=== PATIENT | female | born 1990 | race Caucasian/White ===

== ENCOUNTER 2022-01-22 10:29 | Emergency (ER) | payer OTHER, SELFPAY ==
[2022-01-22 11:51] VITALS: BP 145/96; PULSE 92; RESP 18; TEMP 36.4; O2SAT 100
--- NOTE | 2022-01-22 12:51 | ED.URI ---
HPI - URI/Sore Throat General Chief Complaint: Upper Respiratory Infection Stated Complaint: sorethroat,cough,nasal congestion Time Seen by Provider: 01/22/22 12:51 Source: patient, RN notes reviewed and old records reviewed Mode of arrival: ambulatory Limitations: no limitations History of Present Illness HPI Narrative: 31 year old female presents to [facility] care with complaints of sinus congestion and drainage some coughing and sore throat for the past 3 days. Patient reports that her throat is painful with pain 8/10 and is sharp and painful to swallow. she reports that she noted some hoarseness which started yesterday. Patent reports that she has had COVID vaccinations and flu shot, she had coVID in August of 2020. Patient states that she took a home COVID test this morning which was negative. Patient states that she has been taking Mucinex Sinus Max for her symptoms. MD elicited complaint: cough, sore throat, rhinorrhea and nasal congestion Pertinent past history: seasonal allergies Onset (ago): day(s) (3) Related Data Home Medications Medication Instructions Recorded Confirmed escitalopram oxalate 20 mg PO DAILY 01/22/22 01/22/22 norethindrone (contraceptive) 0.35 mg PO DAILY 01/22/22 01/22/22 Allergies Allergy/AdvReac Type Severity Reaction Status Date / Time No Known Allergies Allergy Verified 01/22/22 12:52 Review of Systems Review of Systems: CONSTITUTIONAL: Denies any fever, chills, or sweats. EYES: Denies visual changes, redness, or discharge. ENT Positive for rhinorrhea, congestion, sore throat, no otalgia. CARDIOVASCULAR: Denies chest pain, palpitations, or edema. RESPIRATORY:Positive for occasional cough no dyspnea., some hoarseness GASTROINTESTINAL: Denies abdominal pain, nausea, vomiting, or diarrhea. GENITOURINARY: Denies dysuria or hematuria. SKIN: Denies rash or itching. MUSCULOSKELETAL: Denies back pain, joint pain, or myalgia. NEUROLOGIC: Denies headache, numbness, or weakness. PSYCHIATRIC:Positive history of anxiety or depression. All systems reviewed & are unremarkable except as noted in HPI and below PMFSH Past Medical History Medical History (Updated 01/22/22 @ 23:37 by Herlinda Alarcon NP) Asthma as child Depression Seasonal allergies Surgical History Surgical History (Updated 01/22/22 @ 23:32 by Herlinda Alarcon NP) History of rhinoplasty Hx of cholecystectomy Previous section X2 Social History Social History (Updated 01/22/22 @ 23:38 by Herlinda Alarcon NP) Smoking status: Never smoker Alcohol intake: current Alcohol use details: social rare Substance use: never Living arrangements: with family Gender identity (if verbalized by the patient): Female Comments At time of signature, agree with nursing past medical, surgical, social and family history. There is no relevant family history pertinent to the presenting complaint Exam Narrative: GENERAL: Ill-appearing, well-nourished, and in no acute distress. HEAD: Normocephalic, atraumatic. EYES: PERRLA and EOMI. ENT: Nares red and swollen with clear rhinorrhea no epistaxis. Mucous membranes moist.TM's normal with good light reflex, throat red with no lesions or exudtes, tonsils red and swollen,post nasal drainage noted NECK: Supple. no lymphadenopathy CHEST: Clear to auscultation. No respiratory distress.occasional cough, SAO2 100% on room air, no tachypnea HEART: Regular rate and rhythm. No murmur heard. Normal peripheral pulses. ABDOMEN: Soft, nontender, nondistended, normal active bowel sounds. EXTREMITIES: Normal range of motion. No edema. SKIN: Warm, dry, no rash. NEURO: No focal deficits. Alert and oriented x3. Course Course Level of Care: Express Care Visit Vital Signs Vital signs: Vital Signs Temperature 36.4 C L 01/22/22 11:51 Pulse Rate 92 01/22/22 11:51 Respiratory Rate 18 01/22/22 11:51 Blood Pressure 145/96 H 01/22/22 11:51 Pulse Oximetry 100 01/22/22 11:51
== END 2022-01-22 13:10 | disposition home or self-care (01) ==
PROVIDERS: Emergency Provider Registered Nurse
DX: J06.9 Acute upper respiratory infection, unspecified (principal); J02.9 Acute pharyngitis, unspecified; R05.9 Cough, unspecified; F32.9 Major depressive disorder, single episode, unspecified
CPT/HCPCS: 87081; 87880; 99203; G0463

== ENCOUNTER 2022-02-06 12:39 | Emergency (ER) | payer OTHER, SELFPAY ==
[2022-02-06 12:50] VITALS: BP 145/91; PULSE 84; RESP 20; TEMP 36.1; O2SAT 99
--- NOTE | 2022-02-06 12:56 | ED.EYEPROB ---
HPI - Eye Problem General Chief complaint: Eye Problems Stated complaint: rt eye irritation Time Seen by Provider: 02/06/22 12:56 Source: patient Mode of arrival: ambulatory Limitations: no limitations History of Present Illness HPI Narrative: 31-year-old female presented for complaints of right eye irritation, onset this morning. She states she woke with the eye crusted shut, endorses drainage throughout the day. 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 Endorses intermittent blurry vision and gritty sensation. Denies pain. Pt does not wear contacts. MD chief complaint: eye pain Related Data Home Medications Medication Instructions Recorded Confirmed escitalopram oxalate 20 mg PO DAILY 01/22/22 02/06/22 norethindrone (contraceptive) 0.35 mg PO DAILY 01/22/22 02/06/22 Allergies Allergy/AdvReac Type Severity Reaction Status Date / Time No Known Allergies Allergy Verified 01/22/22 12:52 Review of Systems Review of Systems: CONSTITUTIONAL: Denies body aches, fever, chills EYES:Endorses redness and drainage to right eye; denies FB sensation, photophobia, visual changes ENT: Denies rhinorrhea, congestion, sore throat, or otalgia. CARDIOVASCULAR: Denies chest pain, palpitations RESPIRATORY: Denies cough or dyspnea. GASTROINTESTINAL: Denies abdominal pain, nausea, vomiting, or diarrhea. SKIN: Denies rash, itching, or wounds. MUSCULOSKELETAL: Denies back pain, joint pain, or myalgia. NEUROLOGIC: Denies headache, numbness, tingling, or weakness. PSYCH: Denies depression or anxiety. All systems reviewed & are unremarkable except as noted in HPI and below PMFSH Past Medical History Medical History (Updated 02/06/22 @ 13:02 by Esperanza Hanley APRN) Asthma as child Depression Seasonal allergies Surgical History Surgical History History of rhinoplasty Hx of cholecystectomy Previous section X2 Social History Social History Smoking status: Never smoker Alcohol intake: current Alcohol use details: social rare Substance use: never Gender identity (if verbalized by the patient): Female Comments At time of signature, I have reviewed and agree with nursing past medical, surgical, social and family history unless otherwise noted. Please see nursing chart for further information. There is no relevant family history pertinent to the presenting complaint Exam Narrative: GENERAL: Well-appearing, no acute distress. HEAD: Normocephalic, atraumatic. EYES: right conjunctival injection, redness and drainage; no eye lid swelling. EOMI. Lid eversion showed no FB. ENT: Mucous membranes pink and moist. No rhinorrhea. TMs normal bilaterally. Throat normal. Uvula midline. NECK: Normal AROM. Supple. No lymphadenopathy. CHEST: No respiratory distress. Clear to auscultation. HEART: Regular rate and rhythm. No murmur appreciated. Normal peripheral pulses. ABDOMEN: Soft, nontender, nondistended MUSCULOSKELETAL: No bony tenderness. EXTREMITIES: Normal range of motion. SKIN: Warm, dry, no rash. Normal skin turgor. NEURO: No focal deficits. Alert and oriented x3. Steady gait PSYCH: Normal affect. Course Course Emergency Course: Patient is aware of diagnosis, understands and agrees to treatment plan. Anticipatory guidance given. Patient agrees to follow-up as directed and is aware of reasons to seek care at the emergency department. Portions of this record may have been created with voice recognition software Level of Care: Express Care Visit Vital Signs Vital signs: Vital Signs Temperature 96.9 F L 02/06/22 12:50 Pulse Rate 84 02/06/22 12:50 Respiratory Rate 20 02/06/22 12:50 Blood Pressure 145/91 H 02/06/22 12:50 Pulse Oximetry 99 02/06/22 12:50 Temperature 96.9 F L 02/06/22 12:50 Pulse Rate 84 02/06/22 12:50 Respiratory Rate 20
== END 2022-02-06 13:23 | disposition home or self-care (01) ==
PROVIDERS: Emergency Provider Nurse Practitioner Family
DX: H10.9 Unspecified conjunctivitis (principal)
CPT/HCPCS: 99213; G0463

== ENCOUNTER 2023-01-31 16:55 | Emergency (ER) | payer OTHER, SELFPAY ==
--- NOTE | ~2023-01-31 | XR_ITS ---
XR ankle LT min 3V DATE: 01/31/2023 17:23 INDICATION: Twisted ankle today. Lateral pain. TECHNIQUE: 3 views COMPARISON: None FINDINGS: There is distal Achilles tendon, mild calcification, minimal posterior calcaneal enthesopat hy, mild plantar calcaneal enthesopathy. No fracture or dislocation of the ankle or disruption of the ankle mortise is detected. No periosteal reaction or bone destruction. IMPRESSION: Minimal posterior and mild plantar calcaneal enthesopathy Minimal distal Achilles tendon calcification Reviewed, dictated and finalized at location A.
[2023-01-31 17:08] VITALS: BP 150/97; PULSE 82; RESP 16; TEMP 36.3; O2SAT 100
--- NOTE | 2023-01-31 17:17 | ED.LOWEXIN ---
HPI - Extremity Injury (Lower) General Chief Complaint: Extremity Injury, Lower Stated Complaint: lt ankle injury Time Seen by Provider: 01/31/23 17:17 Source: patient Mode of arrival: ambulatory Limitations: no limitations History of Present Illness HPI Narrative: Patient is a 32-year-old female that presents with left ankle pain after rolling it off a curb. Patient states it is just the outer part of her ankle that hurts but is still able ambulate with a limp. Denies any numbness or tingling in the foot. Denies hitting head with falling Related Data Home Medications Medication Instructions Recorded Confirmed escitalopram oxalate 20 mg tablet 20 mg PO DAILY 01/22/22 01/31/23 norethindrone (contraceptive) 0.35 0.35 mg PO DAILY 01/22/22 01/31/23 mg tablet bupropion HCl 300 mg 24 hr tablet, mg PO 01/31/23 01/31/23 extended release lisinopril 30 mg tablet 30 mg PO DAILY 01/31/23 01/31/23 montelukast 10 mg tablet 10 mg PO DAILY 01/31/23 01/31/23 propranolol 40 mg tablet 40 mg PO DAILY 01/31/23 01/31/23 Allergies Allergy/AdvReac Type Severity Reaction Status Date / Time No Known Allergies Allergy Verified 01/31/23 17:12 Review of Systems Review of Systems: All systems reviewed & are unremarkable except as noted in HPI and below Constitutional: Constitutional: Denies body ache(s), Denies fever(s), Denies headache(s), Denies malaise and Denies weakness Eyes: Eyes: Denies loss of vision ENT: Denies otalgia, Denies headache(s), Denies nasal discharge, Denies sinus pain and Denies sore throat Cardiovascular: Cardiovascular: Denies chest pain, Denies irregular heart rhythm and Denies dyspnea Respiratory: Respiratory: Denies dyspnea Gastrointestinal: Gastrointestinal: Denies abdominal pain, Denies melena, Denies hematochezia, Denies diarrhea, Denies nausea and Denies vomiting Musculoskeletal: Musculoskeletal: Reports abnormal gait (limp), Denies back pain, Denies myalgias, Reports arthralgias (left ankle) and Reports joint swelling (left ankle) Integumentary/Breasts: Skin/Breast: Denies pruritus and Denies rash Neurologic: Denies headache(s), Denies loss of vision and Denies weakness Psychiatric: Psychiatric: Reports no additional psychiatric complaints PMFSH Past Medical History Medical History (Updated 01/31/23 @ 17:58 by Maida Devine APRN) Asthma as child Depression Seasonal allergies Surgical History Surgical History History of rhinoplasty Hx of cholecystectomy Previous section X2 Social History Social History Smoking status: Never smoker Alcohol intake: current Alcohol use details: social rare Substance use: never Living arrangements: with family Gender identity (if verbalized by the patient): Female Comments At time of signature, agree with nursing past medical, surgical, social and family history. There is no relevant family history pertinent to the presenting complaint. Exam Const: General: cooperative, healthy appearing, comfortable, no acute distress and well nourished Nutritional Appearance: well nourished Orientation/consciousness: patient oriented x3 Limitations: no limitations HENMT: Head: normal to inspection, normocephalic and atraumatic Ears: external ears normal Face/Nose/Sinus: Normal external nose present, normal facial exam and face symmetric Face and sinus: normal facial exam and face symmetric Mouth: Yes lip normal Eyes: General: appearance normal, both eyes and all related structures Alignment and Position: alignment normal and position normal Periorbital: periorbital findings normal Eyelids: eyelids normal Pupils: Equal, round and reactive pupils present EOM: EOMs intact bilaterally Neck: Neck: normal visual inspection and full ROM Chest: Chest palpation & inspection: normal inspection of the chest Resp: Effort & In
== END 2023-01-31 18:15 | disposition home or self-care (01) ==
PROVIDERS: Emergency Provider Nurse Practitioner Family
DX: S93.402A Sprain of unspecified ligament of left ankle, initial encounter (principal); S96.912A Strain of unspecified muscle and tendon at ankle and foot level, left foot, initial encounter; X50.9XXA Other and unspecified overexertion or strenuous movements or postures, initial encounter
CPT/HCPCS: 73610; 99213; G0463

== ENCOUNTER 2024-04-22 08:04 | Emergency (ER) | payer OTHER, SELFPAY ==
--- NOTE | ~2024-04-22 | XR_ITS ---
XR finger 3rd LT min 2V Ordering provider: Catarina Perdomo III, DO History: . smashed in car door TODAY, MID 3RD DIGIT PAIN . Comparison: None. FINDINGS: BONES: No acute fracture or dislocation. JOINT SPACES: Normal. SOFT TISSUES: Normal. IMPRESSION: No acute osseous abnormality. Reviewed, dictated and finalized at location A.
[2024-04-22 08:10] VITALS: BP 174/110; PULSE 82; RESP 18; TEMP 36.4; O2SAT 99
--- NOTE | 2024-04-22 08:36 | ED.UPPEXIN ---
HPI - Extremity Injury (Upper) General Chief Complaint: Extremity Injury, Upper Stated Complaint: L 3RD DIGIT INJURY Time Seen by Provider: 04/22/24 08:31 History of Present Illness HPI narrative: Pt smashed finger in car door this morning. Pt denies other injury. Related Data Home Medications Medication Instructions Recorded Confirmed escitalopram oxalate 20 mg tablet 20 mg PO DAILY 01/22/22 01/31/23 norethindrone (contraceptive) 0.35 0.35 mg PO DAILY 01/22/22 01/31/23 mg tablet bupropion HCl 300 mg 24 hr tablet, mg PO 01/31/23 01/31/23 extended release lisinopril 30 mg tablet 30 mg PO DAILY 01/31/23 01/31/23 montelukast 10 mg tablet 10 mg PO DAILY 01/31/23 01/31/23 propranolol 40 mg tablet 40 mg PO DAILY 01/31/23 01/31/23 Allergies Allergy/AdvReac Type Severity Reaction Status Date / Time No Known Allergies Allergy Verified 04/22/24 08:13 Review of Systems Review of Systems: All systems reviewed & are unremarkable except as noted in HPI and below PMFSH Past Medical History Medical History (Updated 04/22/24 @ 09:09 by Catarina Perdomo III, DO) Asthma as child Depression Seasonal allergies Surgical History Surgical History History of rhinoplasty Hx of cholecystectomy Previous section X2 Social History Social History Smoking status: Never smoker Alcohol intake: current Alcohol use details: social rare Substance use: never Living arrangements: with family Gender identity (if verbalized by the patient): Female Exam Const: General: healthy appearing and no acute distress Nutritional Appearance: well nourished Orientation/consciousness: patient oriented x3 Resp: Effort & Inspection: normal respiratory effort Cardio: Rate: regular rate Rhythm: regular rhythm GI: GI Palp: Yes Soft to palpation Skin: General skin exam: normal color Wounds: no wounds Neuro: General: no focal motor deficits Extrem: Other: tender with swelling over middle phalanx left 3rd finger. no deformity or rotation noted. Psych: Mental Status: mental status grossly normal Affect: normal affect Attitude: cooperative Course Vital Signs Vital signs: Vital Signs Temperature 97.6 F 04/22/24 08:10 Pulse Rate 82 04/22/24 08:10 Respiratory Rate 18 04/22/24 08:10 Blood Pressure 174/110 H 04/22/24 08:10 Pulse Oximetry 99 04/22/24 08:10 Oxygen Delivery Room Air 04/22/24 08:10 Temperature 97.6 F 04/22/24 08:10 Pulse Rate 82 04/22/24 08:10 Respiratory Rate 18 04/22/24 08:10 Blood Pressure 174/110 H 04/22/24 08:10 Pulse Oximetry 99 04/22/24 08:10 Oxygen Delivery Room Air 04/22/24 08:10 MDM - Extremity Injury (Upper) MDM Narrative Medical decision making narrative: smashed finger in car door. contusion vs fx. will get x ray. no fx on x ray home on nsaids. Discharge Plan Discharge Clinical Impression: Contusion Patient Disposition: Home, Self-Care Condition: Stable Instructions: Antibiotic Form, Contusion in Adults (ED) Prescriptions: No Action escitalopram oxalate 20 mg tablet 20 mg PO DAILY norethindrone (contraceptive) 0.35 mg tablet 0.35 mg PO DAILY propranolol 40 mg tablet 40 mg PO DAILY lisinopril 30 mg tablet 30 mg PO DAILY montelukast 10 mg tablet 10 mg PO DAILY bupropion HCl 300 mg tablet extended release 24 hr PO Follow-up/Referrals: [facility] - [facility], [Primary Care Provider] -
== END 2024-04-22 09:20 | disposition home or self-care (01) ==
PROVIDERS: Emergency Provider Emergency Medicine
DX: S60.032A Contusion of left middle finger without damage to nail, initial encounter (principal); F32.A Depression, unspecified; W23.0XXA Caught, crushed, jammed, or pinched between moving objects, initial encounter
CPT/HCPCS: 73140; 99283

== ENCOUNTER 2025-08-01 18:17 | Emergency (ER) | payer OTHER, SELFPAY ==
--- OUTSIDE RECORDS SUMMARY | 2025-07-31 23:11 | XMS_ITS | Encounter Summary ---
Author Organization [facility] Address [address] [place] [address] Care Team Providers Care German Tutor Name Role Phone None, Provider MD Primary Care Provider Unavaila ble Reason for Referral * Imaging (Emergency) - New Request Specialty Diagnoses / Procedures Referred By Ree hart Referred To Contact RADIOLOGY Procedures CTA CHEST+ABD+PEL Ness Contreras PA [address] [place] [address] Phone: tel: fax: Referral ID Status Reason Start Date Expiration Date V isits Requested Visits Authorized [id number] New Request 07/31/2025 07/31/2026 1 1 Reason for Visit * Reason Comments Abdominal Pain Encounter Details Date Type Department Care Team (Late st Contact Info) Description 07/31/2025 11:11 PM CDT - 08/01/2025 2:15 AM CDT Emergency [facility] [place] [address] Alvin Barreto MD,PHD [address] [place] [address] Abdominal Pain Discharge Disposition: Home or Self Care (Routine Discharge) Social History Tobacco Use Types Packs/Day Years Used Date Smoking Tobacco: Never Smokeless Tobacco: Never Tobacco Cessation:Counseling Given: Not Answered Comments Unknown Sex and Gender Information Value Date Recorded Sex Assigned at Not on file Legal Sex Female 10:20 PM CDT Gender Identity Not on file Sexual Orientation Not on file documented as of this encounter Last Filed Vital Signs Vital Sign Reading Time Taken Comments Blood Pressure 176/115 08/01/2025 12:15 AM CDT Pulse 88 08/01/2025 12:15 AM CDT Temperature 36.7 C (98 F) 07/31/2025 10:25 PM CDT Respiratory Rate 20 08/01/2025 12:1 5 AM CDT Oxygen Saturation 97% 07/31/2025 10: 25 PM CDT Inhaled Oxygen Concentration - - Weight 104.4 kg (230 lb 2.6 oz) 025 10:25 PM CDT Height 167.6 cm (5' 6) 07/31/2025 10:2 5 PM CDT Body Mass Index 37.15 07/31/2025 10:25 PM CDT documented in this encounter Functional Status * Calculated C-SSRS Risk Score (Lifetime/Recent) Answer Date of Assessment Author Status No Risk Indicated 07/31/2025 10:24 PM CDT Omar Apodaca RN Active * [place] Suicide Severity Rating Scale (Screener/Recent Self-Report) Question Answer Date of Assessment Author Status 1. Wish to be (Past 1 Month) No 07/31/2025 10:24 PM CDT Radha Apodaca RN A ctive 2. Non-Specific Active Suicidal Thoughts (Past 1 Month) No 07/31/2025 10:24 PM CDT Radha Apodaca RN A ctive 6. Suicidal Behavior (Lifetime) No 07/31/2025 10:24 PM CDT Radha Apodaca RN A ctive documented as of this encounter Discharge Instructions * Attachments The following attachments cannot be sent through Care Everywhere. * Anal Fissure Discharge Instructions (Kyrgyz) documented in this encounter Medications at Time of Discharge psyllium (KONSYL) 100 % Pack Take 1 packet by mouth daily. May substitute with any fiber supplement 30 packet 08/01/2025 documented as of this encounter ED Notes * Valerie Dickens RN - 08/01/2025 2:15 AM CDT Provider discussed today's findings with the patient/family. The patient has been given informationregarding their treatment, follow up and concerning symptoms for which they should seek urgent or emergent attention. I have expressed the the importance of seeking attention should there be any new,or worsening symptoms or persistence of their condition. Patient verbalized understanding of the discharge instructions. * Alvin Barreto MD,PHD - 08/01/2025 1:56 AM CDT EMERGENCY DEPARTMENT ENCOUNTER Chief Complaint Chief Complaint Patient presents with Abdominal Pain History of Present Illness 35-year-old female presenting the emergency department with bright red blood per rectum. She notices bright red blood separate from stool following bowel movements. She intermittently has crampy abdominal pain but has no abdominal pain currently. Patient has no abdominal surgical history. Her only daily medications are Wellbutrin and escitalopram. Physical Exam Filed Vitals: 07/31/25 2225 08/01/25 0015 BP: (!) 222/134 (!) 176/115 Pulse: 89 88 Resp: 22 20 Temp: 98 ??F (36.7 ??C) TempSrc: Temporal SpO2: 97% Weight: 104.4 kg (230 lb 2.6 oz) Height: 1.676 m (5' 6) CONSTITUTIONAL: Patient is awake, alert, in no acute distress, conversant CARDIOVASCULAR: Regular rate and rhythm RESPIRATORY: No respiratory distress or tachypnea, no wheezing or crackles ABDOMEN: Soft, nontender, nondistended RECTAL: Performed with female nurse change analyst Valerie Monique present and assisting, anal fissure at the 12o'clock position that is slight venous oozing NEUROLOGIC: GCS 15, CN2-12 grossly intact, moves all extremities EXTREMITIES: Warm, no edema Diagnostic Studies / Procedures ELECTROCARDIOGRAMS: EKG, TIME 2341 Rate 84, normal sinus rhythm, no ectopy, normal intervals, normal axis, no ST elevations Interpretation by me: no acute ischemic changes Rhythm strip interpreted by me: Rate 84, normal sinus rhythm, no ectopy LABORATORY STUDIES: Results for orders placed or performed during the hospital encounter of 07/31/25 CBC W/DIFF AUTOMATED Result Value Ref Range WBC 11.89 (H) 4.5 - 11.0 x10'3/uL RBC 4.42 4.20 - 5.40 x10'6/uL HGB 11.8 (L) 12.0 - 16.0 G/DL HCT 36.8 (L) 38.0 - 48.0 % MCV 83.3 81.0 - 99.0 FL MCH 26.7 (L) 27.0 - 31.0 PG MCHC 32.1 32.0 - 36.0 G/DL RDW 14.4 11.5 - 14.5 % PLT 387 130 - 400 x10'3/uL MPV 9.7 9.3 - 12.2 FL DIFFERENTIAL TYPE AUTOMATED DIFFERENTIAL NEUTROPHILS % 60.6 % LYMPHOCYTES % 25.7 % MONOCYTES % 8.2 % EOSINOPHILS 4.4 % BASOPHILS 0.8 % IMMATURE GRANS % 0.3 % ABS. NEUTROPHILS 7.20 1.80 - 7.70 x10'3/uL ABS. LYMPHOCYTES 3.06 1.00 - 4.80 x10'3/uL ABS. MONOCYTES 0.97 (H) 0.24 - 0.86 x10'3/uL ABS. EOSINOPHILS 0.52 (H) 0.04 - 0.36 x10'3/uL ABS. BASOPHILS 0.10 (H) 0.01 - 0.08 x10'3/uL ABS. IMMATURE GRANULOCYTES 0.04 0.00 - 0.49 x10'3/uL COMPREHENSIVE METABOLIC PANEL Result Value Ref Range GLUCOSE 104 (H) 70 - 99 MG/DL BUN 11 7 - 18 MG/DL CREATININE S/P/B 0.78 0.55 - 1.02 MG/DL SODIUM S/P/B 141 136 - 145 MMOL/L POTASSIUM S/P/B 3.6 3.5 - 5.1 MMOL/L CHLORIDE S/P/B 108 97 - 115 MMOL/L CO2 26.0 21 - 32 MMOL/L CALCIUM S/P/B 8.8 8.5 - 10.1 MG/DL BILIRUBIN TOTAL S/P/B 0.2 0.2 - 1.2 MG/DL TOTAL PROTEIN S/P/B 7.5 6.4 - 8.2 G/DL ALBUMIN S/P/B 3.7 3.4 - 5.0 G/DL AST 9 (L) 15 - 37 U/L ALT 19 14 - 55 U/L ALKALINE PHOSPHATASE S/P/B 93 50 - 136 U/L ANION GAP 7.0 2 - 10 MMOL/L BUN CREATININE RATIO 14.1 6 - 26 A/G RATIO 1.0 1.0 - 2.0 RATIO GFR ESTIMATE >90 >90 ML/MIN/1.73 M2 Qualitative HCG Result Value Ref Range PREG SCREEN-SERUM NEGATIVE TROPONIN, QUANT Result Value Ref Range TROPONIN I HIGH SENSITIVITY 10 <54 ng/L MAGNESIUM Result Value Ref Range MAGNESIUM 2.0 1.8 - 2.4 MG/DL IMAGING STUDIES CTA CHEST+ABD+PEL Final Result by User, [id number] (08/01 133) [facility] [address] [place], [place] [address] EXAM: CTA CHEST+ABD+PEL INDICATION: Abdominal pain, blood in stool COMPARISON: None TECHNIQUE: CTA images of the chest, abdomen, and pelvis were obtained prior to and following the administration of IV contrast. Delayed images were also obtained. MIP reconstructions were synthesized. 3D reconstruction of vasculature was synthesized. Radiation dose reduction technique utilized. FINDINGS: VASCULATURE: Aortic root, ascending aorta, aortic arch, and descending thoracic aorta are unremarkable. No aneurysmal dilatation or dissection. Great vessels of the aortic arch exhibit typical anatomic configuration. Nonaneurysmal abdominal aorta does not demonstrate significant flow limiting stenosis. Celiac axis, SMA, and bilateral renal arteries are normal. Right common, internal, and external iliac arteries are patent without stenosis. Left common, internal, and external iliac arteries are patent without stenosis. No evidence of hemorrhage, dissection, or pseudoaneurysm formation. Though this study is not optimized for evaluation for pulmonary emboli, no filling defects in the main or segmental pulmonary arteries to suggest pulmonary embolism. CHEST: Cardiac chambers within normal size limits. No significant pericardial effusion or significant coronary atherosclerosis. No mediastinal, hilar, or axillary lymphadenopathy. No suspicious thyroid nodule the field of view. Esophagus within normal limits. Trachea and central airways are patent. No pneumothorax. No pleural effusion. No focal airspace consolidation. ABDOMEN/PELVIS: Hepatomegaly, measuring 19.6 cm. No suspicious hepatic lesion. Cholecystectomy. Main portal vein, splenic vein, and SMV enhance. No retroperitoneal lymphadenopathy. No evidence of bowel obstruction or acute inflammation. Redundant course of the colon. No colonic diverticulosis. Moderate colonic stool burden. Normal appearing appendix. Small bowel is unremarkable. Stomach and duodenum within normal limits. No evidence of GI hemorrhage. Unremarkable spleen. Pancreas and adrenal glands within normal limits. Kidneys enhance symmetrically. Benign-appearing renal cystic foci for which no further follow-up is recommended. No hydronephrosis or hydroureter. Urinary bladder appears distended; wall within normal limits. Uterus and adnexa within normal limits, with physiologic follicles present in the ovaries. No pelvic lymphadenopathy or significant free fluid. Incidental note of benign pelvic phleboliths. MSK / BODY WALL: Mild chronic degenerative changes of the hips and sacroiliac joints. Mild chronic multilevel degenerative changes of the spine. Visualized body wall exhibits no acute abnormality. IMPRESSION: 1. No acute abnormality identified in the chest, abdomen, or pelvis. No evidence of GI hemorrhage, as clinically queried. 2. Hepatomegaly. 3. Urinary bladder appears distended; wall within normal limits. Referred By: Interpreted By: Mahin Ruiz MD, 08/01/2025 1:32 AM ED Course / Medical Decision Making Patient presenting with a chief complaint of rectal bleeding I reviewed the patient's labs, which are significant for borderline leukocytosis and mild normocytic anemia on CBC. Her CMP is notable for borderline hyperglycemia. I reviewed the radiologist's interpretation of the patient's radiologic diagnostics. No acute abnormality within the chest, abdomen, or pelvis is demonstrated. I interpreted the patient's pulse oximeter at rest, which is 97% on room air, which is normal and determined that this patient is not hypoxic Medication management: Ondansetron was administered for symptomatic relief An anal fissure as the source of the patient's bleeding is clinically diagnosed with an examination. Treatment of anal fissure was discussed with the patient. Psyllium is prescribed Patient's blood pressure was markedly elevated during her emergency department course. I have explained that this may need treatment if it remains elevated at rest and have recommended primary care follow-up in this regard. The following social determinates of health were considered when determining a disposition: The patient does not have primary care physician. The patient is thus referred to a primary care physician for further evaluation and treatment of acute complaints and for health maintenance and management of long-term medical problems Clinical Impression Anal fissure (Primary) Elevated blood pressure reading Disposition: Discharge home Patient provided with printed and verbal discharge care instructions and was instructed to return to the emergency department immediately with worsening symptoms or new worrisome symptoms. Diagnoses & treatment discussed with patient Patient expressed understanding and agreed. Outpatient referral to primary care physician. Patient provided with phone number to call for an appointment. Patient instructed to call on the next business day during business hours. Patient informed that they require re- evaluation within 1 week. 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 Pt states it is bright red blood in large amounts. Pt rates her pain 5/10. 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 documented in this encounter Plan of Treatment Not on file documented as of this encounter Procedures Procedure Name Priority Date/Time Associated Diagnosis Comments CTA CHEST+ABD+PEL STAT 08/01/2025 12: 42 AM CDT ECG 12-LEAD Routine 07/31/2025 11:41 PM CDT COMPREHENSIVE METABOLIC PANEL STAT 07/31/2025 11:26 PM CDT CHORIONIC GONADOTROPIN HCG QL STAT 07/31/2025 11:26 PM CDT CBC W/DIFF AUTOMATED STAT 07/31/2025 11:26 PM CDT TROPONIN, QUANT STAT 07/31/2025 11:26 PM CDT MAGNESIUM STAT 07/31/2025 11:26 PM CDT documented in this encounter Results * CTA CHEST+ABD+PEL (08/01/2025 12:42 AM CDT) Anatomical Region Laterality Modality Chest, Abdomen, Pelvis Computed Tomography 08/01/2025 1:32 AM CDT Impressions 08/01/2025 1:32 AM CDT IMPRESSION: 1. No acute abnormality identified in the chest, abdomen, or pelvis. No evidence of GI hemorrhage, as clinically queried. 2. Hepatomegaly. 3. Urinary bladder appears distended; wall within normal limits. Referred By: Interpreted By: Mahin Ruiz MD, 08/01/2025 1:32 AM Narrative 08/01/2025 1:32 AM CDT [address] [address] EXAM: CTA CHEST+ABD+PEL INDICATION: Abdominal pain, blood in stool COMPARISON: None TECHNIQUE: CTA images of the chest, abdomen, and pelvis were obtained prior to and following the administration of IV contrast. Delayed images were also obtained. MIP reconstructions were synthesized. 3D reconstruction of vasculature was synthesized. Radiation dose reduction technique utilized. FINDINGS: VASCULATURE: Aortic root, ascending aorta, aortic arch, and descending thoracic aorta are unremarkable. No aneurysmal dilatation or dissection. Great vessels of the aortic arch exhibit typical anatomic configuration. Nonaneurysmal abdominal aorta does not demonstrate significant flow limiting stenosis. Celiac axis, SMA, and bilateral renal arteries are normal. Right common, internal, and external iliac arteries are patent without stenosis. Left common, internal, and external iliac arteries are patent without stenosis. No evidence of hemorrhage, dissection, or pseudoaneurysm formation. Though this study is not optimized for evaluation for pulmonary emboli, no filling defects in the main or segmental pulmonary arteries to suggest pulmonary embolism. CHEST: Cardiac chambers within normal size limits. No significant pericardial effusion or significant coronary atherosclerosis. No mediastinal, hilar, or axillary lymphadenopathy. No suspicious thyroid nodule the field of view. Esophagus within normal limits. Trachea and central airways are patent. No pneumothorax. No pleural effusion. No focal airspace consolidation. ABDOMEN/PELVIS: Hepatomegaly, measuring 19.6 cm. No suspicious hepatic lesion. Cholecystectomy. Main portal vein, splenic vein, and SMV enhance. No retroperitoneal lymphadenopathy. No evidence of bowel obstruction or acute inflammation. Redundant course of the colon. No colonic diverticulosis. Moderate colonic stool burden. Normal appearing appendix. Small bowel is unremarkable. Stomach and duodenum within normal limits. No evidence of GI hemorrhage. Unremarkable spleen. Pancreas and adrenal glands within normal limits. Kidneys enhance symmetrically. Benign-appearing renal cystic foci for which no further follow-up is recommended. No hydronephrosis or hydroureter. Urinary bladder appears distended; wall within normal limits. Uterus and adnexa within normal limits, with physiologic follicles present in the ovaries. No pelvic lymphadenopathy or significant free fluid. Incidental note of benign pelvic phleboliths. MSK / BODY WALL: Mild chronic degenerative changes of the hips and sacroiliac joints. Mild chronic multilevel degenerative changes of the spine. Visualized body wall exhibits no acute abnormality. Procedure Note Mahin Ruiz MD - 08/01/[address] [address] EXAM: CTA CHEST+ABD+PEL INDICATION: Abdominal pain, blood in stool COMPARISON: None TECHNIQUE: CTA images of the chest, abdomen, and pelvis were obtainedprior to and following the administration of IV contrast. Delayed imageswere also obtained. MIP reconstructions were synthesized. 3Dreconstruction of vasculature was synthesized. Radiation dose reductiontechnique utilized. FINDINGS: VASCULATURE: Aortic root, ascending aorta, aortic arch, and descending thoracic aortaare unremarkable. No aneurysmal dilatation or dissection. Great vessels ofthe aortic arch exhibit typical anatomic configuration. Nonaneurysmal abdominal aorta does not demonstrate significant flowlimiting stenosis. Celiac axis, SMA, and bilateral renal arteries arenormal. Right common, internal, and external iliac arteries are patent withoutstenosis. Left common, internal, and external iliac arteries are patent withoutstenosis. No evidence of hemorrhage, dissection, or pseudoaneurysm formation. Though this study is not optimized for evaluation for pulmonary emboli, nofilling defects in the main or segmental pulmonary arteries to suggestpulmonary embolism. CHEST: Cardiac chambers within normal size limits. No significant pericardialeffusion or significant coronary atherosclerosis. No mediastinal, hilar, or axillary lymphadenopathy. No suspicious thyroidnodule the field of view. Esophagus within normal limits. Trachea and central airways are patent. No pneumothorax. No pleuraleffusion. No focal airspace consolidation. ABDOMEN/PELVIS: Hepatomegaly, measuring 19.6 cm. No suspicious hepatic lesion.Cholecystectomy. Main portal vein, splenic vein, and SMV enhance. No retroperitoneallymphadenopathy. No evidence of bowel obstruction or acute inflammation. Redundant courseof the colon. No colonic diverticulosis. Moderate colonic stool burden.Normal appearing appendix. Small bowel is unremarkable. Stomach andduodenum within normal limits. No evidence of GI hemorrhage. Unremarkable spleen. Pancreas and adrenal glands within normal limits. Kidneys enhance symmetrically. Benign-appearing renal cystic foci forwhich no further follow-up is recommended. No hydronephrosis orhydroureter. Urinary bladder appears distended; wall within normal limits. Uterus andadnexa within normal limits, with physiologic follicles present in theovaries. No pelvic lymphadenopathy or significant free fluid. Incidentalnote of benign pelvic phleboliths. MSK / BODY WALL: Mild chronic degenerative changes of the hips and sacroiliac joints. Mild chronic multilevel degenerative changes of the spine. Visualized body wall exhibits no acute abnormality. IMPRESSION: 1. No acute abnormality identified in the chest, abdomen, or pelvis. Noevidence of GI hemorrhage, as clinically queried. 2. Hepatomegaly. 3. Urinary bladder appears distended; wall within normal limits. 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1990 Requested By: NESS CONTRERAS Order Number: [id number] Gilberto MD: Reyse Falcon Measurements Intervals [place] Rate: 84 P: 20 VT: 174 QRS: -27 QRSD: 88 T: 65 QT: 379 QTc: 450 Interpretive Statements SINUS RHYTHM VOLTAGE CRITERIA FOR LVH [MEETS CRITERIA IN ONE OF: R(aVL), S(V1), R(V5), R(V5/V6)+S(V1)] POSSIBLE ANTERIOR MYOCARDIAL INFARCTION , PROBABLY OLD [30 ms Q WAVE IN V3/V4, OR R < 0.2 mV IN V4] No previous ECG available for comparison Procedure Note Reyes Falcon MD - 08/01/[address] Test Date: 2025-07-31 Pat Name: FIFI ANDRADE Department: 41 Room: [facility] Gender: F 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: [id number] : 1990 Requested By: NESS CONTRERAS Order Number: [id number] Reading MD: Reyes Falcon Measurements Intervals [place] Rate: 84 P: 20 VT: 174 QRS: -27 QRSD: 88 T: 65 QT: 379 QTc: 450 Interpretive Statements SINUS RHYTHM VOLTAGE CRITERIA FOR LVH [MEETS CRITERIA IN ONE OF: R(aVL), S(V1),R(V5), R(V5/V6)+S(V1)] POSSIBLE ANTERIOR MYOCARDIAL INFARCTION , PROBABLY OLD [30 ms Q WAVE IN V3/V4, OR R < 0.2 mV IN V4] No previous ECG available for comparison us Ness LIND ECG ORDERABLES Final Result [facility] ([facility]) RAD * MAGNESIUM (07/31/2025 11:26 PM CDT) MAGNESIUM 2.0 1.8 - 2.4 MG/DL 08/01/2025 12:15 AM CDT [facility] 07/31/2025 11:2 6 PM CDT us [facility] Final Result Performing Organization Address City/[facility]/ZIP Co de Phone Number [facility] [address] [place] [address], [place] [phone] * TROPONIN, QUANT (07/31/2025 11:26 PM CDT) [facility] TROPONIN I HIGH SENSITIVITY 10 <54 ng/L 08/01/2025 12:15 AM CDT [facility] Comment: HIGH DOSES OF BIOTIN, TROPONIN-SPECIFIC AUTOANTIBODIES, AND ANTIBODY THERAPY CONTAINING HAMA MAY INTERFERE WITH THIS TEST RESULT. CORRELATION TO CLINICAL HISTORY AND PRESENTATION RECOMMENDED. 07/31/2025 11:2 6 PM CDT us [facility] Final Result Performing Organization Address [facility] Co de Phone Number [facility] [address] [place] [address], [place] [phone] * Qualitative HCG (07/31/2025 11:26 PM CDT) [facility] PREG SCREEN-SERUM NEGATIVE 07/31/2025 11:53 PM CDT [facility] 07/31/2025 11:2 6 PM CDT us [facility] Final Result Performing Organization Address City/[facility]/ZIP Co de Phone Number [facility] [address] [place] [address], [place] [phone] * (ABNORMAL) COMPREHENSIVE METABOLIC PANEL (07/31/2025 11:26 PM CDT) [facility] GLUCOSE 104(H) 70 - 99 MG/DL 08/01/2025 12:15 AM CDT [facility] BUN 11 7 - 18 MG/DL 08/01/2025 12:15 AM CDT [facility] CREATININE S/P/B 0.78 0.55 - 1.02 MG/DL 08/01/2025 12:15 AM CDT [facility] SODIUM S/P/B 141 136 - 145 MMOL/L 08/01/2025 12:15 AM CDT [facility] POTASSIUM S/P/B 3.6 3.5 - 5.1 MMOL/L 08/01/2025 12:15 AM T [facility] CHLORIDE S/P/B 108 97 - 115 MMOL/L 08/01/2025 12:15 AM CDT [facility] CO2 26.0 21 - 32 MMOL/L 08/01/2025 12:15 AM T [facility] CALCIUM S/P/B 8.8 8.5 - 10.1 MG/DL 08/01/2025 12:15 AM T [facility] BILIRUBIN TOTAL S/P/B 0.2 0.2 - 1.2 MG/DL 08/01/2025 12:15 AM T [facility] Comment: THIS ASSAY IS NOT RECOMMENDED FOR PATIENTS UNDERGOING TREATMENT WITH ELTROMBOPAG DUE TO THE POTENTIAL FOR FALSELY ELEVATED RESULTS. TOTAL PROTEIN S/P/B 7.5 6.4 - 8.2 G/DL 08/01/2025 12:15 AM T [facility] ALBUMIN S/P/B 3.7 3.4 - 5.0 G/DL 08/01/2025 12:15 AM T [facility] AST 9(L) 15 - 37 U/L 08/01/2025 12:15 AM CDT [facility] ALT 19 14 - 55 U/L 08/01/2025 12:15 AM T [facility] ALKALINE PHOSPHATASE S/P/B 93 50 - 136 U/L 08/01/2025 12:15 AM CDT [facility] ANION GAP 7.0 2 - 10 MMOL/L 08/01/2025 12:15 AM CDT [facility] BUN CREATININE RATIO 14.1 6 - 26 08/01/2025 12:15 AM CDT [facility] A/G RATIO 1.0 1.0 - 2.0 RATIO 08/01/2025 12:15 AM CDT [facility] GFR ESTIMATE >90 >90 ML/MIN/1.7 3 M2 08/01/2025 12:15 AM CDT [facility] Comment: NOTE: eGFR is not calculated for patients <18 years of age or gender unknown. This is an estimated GFR calculation using the new CKD EPI creatinine equation without race and so does not require a correction factor for race. This estimated GFR should not be used for calculating drug doses. 07/31/2025 11:2 6 PM CDT [facility] Final Result [facility] [address] [place] [address], [place] [phone] * (ABNORMAL) CBC W/DIFF AUTOMATED (07/31/2025 11:26 PM CDT) WBC 11.89(H) 4.5 - 11.0 x10'3/uL 07/31/2025 11:45 PM CDT [facility] RBC 4.42 4.20 - 5.40 x10'6/uL 07/31/2025 11:45 PM CDT [facility] HGB 11.8(L) 12.0 - 16.0 G/DL 07/31/2025 11:45 PM CDT [facility] HCT 36.8(L) 38.0 - 48.0 % 07/31/2025 11:45 PM CDT [facility] MCV 83.3 81.0 - 99.0 FL 07/31/2025 11:45 PM CDT [facility] MCH 26.7(L) 27.0 - 31.0 PG 07/31/2025 11:45 PM CDT [facility] MCHC 32.1 32.0 - 36.0 G/DL 07/31/2025 11:45 PM CDT [facility] RDW 14.4 11.5 - 14.5 % 07/31/2025 11:45 PM CDT [facility] PLT 387 130 - 400 x10'3/uL 07/31/2025 11:45 PM CDT [facility] MPV 9.7 9.3 - 12.2 FL 07/31/2025 11:45 PM CDT [facility] DIFFERENTIAL TYPE AUTOMATED DIFFERENTIAL 07/31/2025 11:45 PM CDT [facility] NEUTROPHILS % 60.6 % 07/31/2025 11:45 PM CDT [facility] LYMPHOCYTES % 25.7 % 07/31/2025 11:45 PM CDT [facility] MONOCYTES % 8.2 % 07/31/2025 11:45 PM CDT [facility] EOSINOPHILS 4.4 % 07/31/2025 11:45 PM CDT [facility] BASOPHILS 0.8 % 07/31/2025 11:45 PM CDT [facility] IMMATURE GRANS % 0.3 % 07/31/20 11:45 PM CDT [facility] ABS. NEUTROPHILS 7.20 1.80 - 7.70 x10'3/uL 07/31/2025 11:45 PM CDT [facility] ABS. LYMPHOCYTES 3.06 1.00 - 4.80 x10'3/uL 07/31/2025 11:45 PM CDT [facility] ABS. MONOCYTES 0.97(H) 0.24 - 0.86 x10'3/uL 07/31/2025 11:45 PM CDT [facility] ABS. EOSINOPHILS 0.52(H) 0.04 - 0.36 x10'3/uL 07/31/2025 11:45 PM CDT [facility] ABS. BASOPHILS 0.10(H) 0.01 - 0.08 x10'3/uL 07/31/2025 11:45 PM CDT [facility] ABS. IMMATURE GRANULOCYTES 0.04 0.00 - 0.49 x10'3/uL 07/31/2025 11:45 PM CDT [facility] 07/31/2025 11:2 6 PM CDT [facility] Final Result [facility] [address] [place] [address], documented in this encounter Visit Diagnoses Diagnosis Anal fissure- Primary Elevated blood pressure reading Elevated blood pressure reading without diagnosis of hypertension documented in this encounter Administered Medications Inactive Administered Medications - up to 3 most recent administrations Medication Order MAR Action Action Date Dose Rate Site iopamidol (ISOVUE-370) 76 % injection 100 mL 100 mL, Intravenous, IMG once as needed, Contrast, 1 dose, Starting on 08/01/25 at 0042, Until 08/01/25 at 0042 Given 08/01/2025 12:42 AM CDT 100 mLs ondansetron (ZOFRAN) injection 4 mg 4 mg, Intravenous, Once, 1 dose, On 10/4/25 at 2230, IV push over 2-5 minutes. Given 08/01/2025 12:05 AM CDT 4 mg documented in this encounter Active and Recently Administered Medications Times are shown in CDT. Scheduled Medication Order 07/30/2025 07/31/2025 08/01/2025 ondansetron (ZOFRAN) injection 4 mg (COMPLETED) 4 mg, Intravenous, Once, 1 dose, On 07/31/25 at 2230, IV push over 2-5 minutes. 0005 (Given - Provid er: Lonnie Cheatham RN) PRN Medication Order 07/30/2025 07/31/2025 08/01/2025 iopamidol (ISOVUE-370) 76 % injection 100 mL (COMPLETED) 100 mL, Intravenous, IMG once as needed, Contrast, 1 dose, Starting on 08/01/25 at 0042, Until 08/01/25 at 0042 0042 (Given - Provid er: RT DeniseR) documented in this encounter Care Teams German Tutor Relationship Specialty Start Date End Date None, Provider, PCP - General UNKNOWN PHYSICIAN SPECIALTY 07/31/25 documented as of this encounter
--- NOTE | ~2025-08-01 | CT_ITS ---
CT HEAD NON-CONTRAST Clinical History: [place], HTN 200s/100s Comparison: None Technique: Unenhanced axial images skull base to vertex Coronal, sagittal reformats CT images acquired with automatic exposure control for dose reduction DLP: 605 mGy-cm Findings: Sulci, ventricles: Unremarkable. No intracerebral hemorrhage. No evidence acute territorial infarct. No mass effect, midline shift. Bony calvarium intact. Visualized paranasal sinuses: Clear. Mastoid air cells: Clear. IMPRESSION: 1. No acute intracranial findings. Reviewed, dictated and finalized at location R.
--- NOTE | ~2025-08-01 | CT_ITS ---
EXAMINATION: CTA chest abdomen pelvis DATE: 08/01/2025 20:09 INDICATION: Chest pain. TECHNIQUE: Computed tomographic angiography (CTA) of the chest, abdomen, and pelvis was performed with 100 mL Omnipaque-350 intravenous contrast. Automated exposure control and iterative reconstruction technique were employed. The dose- length product was 1521.06 mGy-cm. Maximum intensity projection 3D- reconstructions of the aorta and other arteries were constructed by the technologist on a separate workstation. COMPARISON: None. FINDINGS: CHEST CTA: The lungs demonstrate minimal atelectasis. No pleural effusion. There is a 12 mm nodule in the thyroid, likely not clinically significant. The heart size is normal. No pericardial effusion. The aorta is normal. There is no pulmonary embolus. There is mild thoracic spondylosis. ABDOMEN AND PELVIS CTA: The liver and spleen are normal. There are changes of cholecystectomy. The pancreas, adrenal glands, and kidneys are normal. There are no dilated loops of bowel. The appendix is normal. There are no pathologically enlarged lymph nodes. There is no free intraperitoneal fluid. There is no significant stenosis of celiac axis, superior mesenteric artery, the renal arteries, or inferior mesenteric artery. There is mild lumbar spondylosis. IMPRESSION: 1. No etiology for the patient's symptoms. Reviewed, dictated and finalized at location E.
--- NOTE | ~2025-08-01 | XR_ITS ---
EXAMINATION: XR chest 2V, 08/01/2025 18:42 CDT HISTORY: cp COMPARISON: No comparisons available. Technique: 2 views obtained. Findings: The lungs are clear, no effusion. No pneumothorax. Heart is normal size. Mediastinal and hilar contours are within normal limits. Bony thorax no acute abnormality. Impression: No acute cardiopulmonary abnormality. Reviewed, dictated and finalized at location P. Impression: No acute cardiopulmonary abnormality.
[2025-08-01 18:18] VITALS: BP 207/112; PULSE 88; RESP 16; TEMP 37; O2SAT 100
--- OUTSIDE RECORDS SUMMARY | 2025-08-01 18:19 | XMS_ITS | Clinical Summary ---
Author Organization [facility] Address [address] [place] [address] Care Team Providers Care Cone Worker Name Role Phone Unavailable Primary Care Provider Unavailabl e Social History Tobacco Use Types Packs/Day Years Used Date Smoking Tobacco: Never Assessed Comments Unknown Sex and Gender Information Value Date Recorded Sex Assigned at Not on file Legal Sex Female 8:01 AM PST Gender Identity Not on file Sexual Orientation Not on file Plan of Treatment Not on file
--- OUTSIDE RECORDS SUMMARY | 2025-08-01 18:19 | XMS_ITS | Clinical Summary ---
Author Organization [facility] Address [address] [place] [address] Phone Care Team Providers Care Senior Ios Developer Name Role Phone Dalton Jordan MD Primary Care Provide r Allergies No known active allergies Medications escitalopram oxalate (LEXAPRO) 20 MG tablet Take 20 mg by mouth one (1) time a day 08/17/2018 Active fluticasone (FLONASE) 50 mcg/actuation nasal spray 1-2 sprays by Each Nostril route 2 (two) times a day 05/15/2018 Active ibuprofen (ADVIL,MOTRIN) 800 MG tablet Si PO every 8-12 hours PRN inflammation /pain 24 tablet 10/18/2018 Active Active Problems Problem Noted Date Diagnosed Date Snoring Social History Tobacco Use Types Packs/Day Years Used Date Smoking Tobacco: Former Cigarettes Q uit: 08/21/2007 Smokeless Tobacco: Never Tobacco Cessation:Counseling Given: Yes Alcohol Use Standard Drinks/Week Comments No 0 (1 standard drink = 0.6 oz pur e alcohol) AUDIT-C Answer Date Recorded Frequency of Alcohol Consumption Never 08/21/2018 Average Number of Drinks Not on file 018 Frequency of Binge Drinking Not on file 07/29 Intimate Partner Safety Answer Date Rec orded Intimate Partner Safety Not At Risk 12/27/19 24 Intimate Partner Safety Not At Risk 12/27/19 24 Intimate Partner Safety Not At Risk 12/27/19 24 Intimate Partner Safety Not At Risk 12/27/19 24 Intimate Partner Safety Not on file 12/27/19 24 Comments No Sex and Gender Information Value Date Recorded Sex Assigned at Not on file Legal Sex Female 2:24 PM [employer] Gender Identity Not on file Sexual Orientation Not on file Last Filed Vital Signs Vital Sign Reading Time Taken Comments Blood Pressure 138/91 09/21/2019 10:36 PM [employer] Pulse 89 09/21/2019 10:36 PM [employer] Temperature 36.7 C (98 F) 09/21/2019 10:36 PM [employer] Respiratory Rate 18 09/21/2019 10:3 6 PM [employer] Oxygen Saturation 98% 09/21/2019 10: 36 PM [employer] Inhaled Oxygen Concentration - - Weight 105.5 kg (232 lb 9.6 oz) 09/21/2019 7:15 PM [employer] Height 170.2 cm (5' 7) 09/21/2019 7:15 PM [employer] Body Mass Index 36.43 09/21/2019 7:15 PM [employer] Plan of Treatment Health Maintenance Due Date Last Done Comments Annual Depression Screening 1999 Annual Physical 2006 Hepatitis C Antibody Screen 2006 DTap/Tdap/Td Vaccines (1 - Tdap) 2007 Cervical Cancer Screening 2009 Flu Vaccine (#1) 06/28/2025 Influenza Vaccine 06/28/2025 Insurance Care Teams Senior Ios Developer Relationship Specialty Start Date End Date Dalton Jordan MD [address] , [facility] [address] [place] [address] PCP - General 05/20/18
--- OUTSIDE RECORDS SUMMARY | 2025-08-01 18:19 | XMS_ITS | Data Portability ---
Author Organization [place] [facility] [employer], Main Office Address [address] [place] [address] Assessment Encounter Date Assessment Date Assessment LastModified by Organization Details LastModified Time 03/05/2023 03/05/2023 Assessment: Cough Dyspnea Postnasal drip Plan: The following were reviewed and explained to the patient: primary care/referral note [facility] diagnostic sleep study 11/14/18 HI = 1 Start Atrovent nasal spray 0.06% 1 spray to each nostril up to 4 times a day for postnasal drip. Cough/Dyspnea workup will be done as follows: Respiratory allergen panel for [facility] Serum IgE Serum total IgG, IgG1, IgG2, IgG3, IgG4 [id number] n phenotype and level TB stimulated gamma interferon B-type natriuretic peptide (BNP) Eosinophil count Complete pulmonary function testing (PFT) Chest x-ray 2 views Advised to continue not to smoke. Continue albuterol HFA as needed. The patient does not know how to accurately administer the inhaler. Today, the patient was shown how to take this medication. The proper technique for delivering this medication was instructed. The patient expressed a clear understanding and demonstrated back how to use this medication. Without the proper technique, the patient will not reap the benefits of the treatment as the contents of the inhaler will not reach the lower airways as intended to be. Adherence to therapy is advocated. Nonadherence may lead to treatment failure, further progression of the condition, and other complications. Hospitals admissions are often the result of individuals not taking prescription medications accurately. Alternatively, greater adherence to medication regimens have shown to lower rates of hospitalization and decrease total medical costs in patients with chronic medical conditions. Advocated influenza vaccination annually and pneumonia vaccination JALIL. Advocated weight loss through diet and exercise. Patient's ideal body weight according to height and gender is up to 145 lbs. Encouraged patient to adjust caloric intake to maintain/achieve ideal body weight, emphasizing on fruits, vegetables, whole grains, and fat-free or low-fat products. These include lean meats, poultry, fish, beans, eggs, and nuts and foods that are low in saturated fats, trans-fats, cholesterol, salt (sodium), and glycemic index. Stressed the importance of regular exercise up to the patient's capacity limits. In this case, we recommend 20 min daily walking, 2 days a week of resistance training. Patient to monitor BP daily and bring records to PCP for further management. Follow-up: 1 week after PFT Not available 03/05/2023 12:04:20 05/08/2023 05/08/2023 Assessment: Cough Postnasal drip Eosinophilia (+) Aspergillus fumigatus IgE AAT PiMZ Plan: The following were reviewed and explained to the patient: [facility] diagnostic sleep study 11/14/18 HI = 1 Lab data 03/05/23 eosinophilia, AAT PiMZ, multiple environmental allergies Chest 2 views 03/05/23 no acute process PFT 05/08/23 nl FEV1/FVC, FEV1 3.27 L (105%), BD 10 mL = <1%, TLC 4.78 L (87%), RV 0.68 L (38%), DLCO 77%, DLCO/VA 110% Uzgie-0-gwvccjxccw n deficiency (AAT) information were discussed: What is alpha-1 antitrypsin deficiency? How common is alpha-1 antitrypsin deficiency? What genes are related to alpha-1 antitrypsin deficiency? How do people inherit alpha-1 antitrypsin deficiency? What other names do people use for alpha-1 antitrypsin deficiency? Who should get replacement enzymes? AAT deficiency educational video is shown. If agreeable, the patient will receive 60 mg/kg weekly IV infusions of alpha-1 antitrypsin protein concentrates as an augmentation therapy when both serum alpha-1 antitrypsin concentrations are below protective levels and FEV1 is less than 80% of the predicted value. Patient will encourage her parents, 1 sister, 2 brothers, 1 son, 1 daughter to be tested for AAT deficiency. Continue Atrovent nasal spray 0.06% 1 spray to each nostril up to 4 times a day for postnasal drip. Cough/Dyspnea workup will be done as follows: Methacholine challenge testing Advised to continue not to smoke. Continue albuterol HFA as needed. The patient does not know how to accurately administer the inhaler. Today, the patient was shown how to take this medication. The proper technique for delivering this medication was instructed. The patient expressed a clear understanding and demonstrated back how to use this medication. Without the proper technique, the patient will not reap the benefits of the treatment as the contents of the inhaler will not reach the lower airways as intended to be. Adherence to therapy is advocated. Nonadherence may lead to treatment failure, further progression of the condition, and other complications. Hospitals admissions are often the result of individuals not taking prescription medications accurately. Alternatively, greater adherence to medication regimens have shown to lower rates of hospitalization and decrease total medical costs in patients with chronic medical conditions. Advocated influenza vaccination annually and pneumonia vaccination JALIL. Advocated weight loss through diet and exercise. Patient's ideal body weight according to height and gender is up to 145 lbs. Encouraged patient to adjust caloric intake to maintain/achieve ideal body weight, emphasizing on fruits, vegetables, whole grains, and fat-free or low-fat products. These include lean meats, poultry, fish, beans, eggs, and nuts and foods that are low in saturated fats, trans-fats, cholesterol, salt (sodium), and glycemic index. Stressed the importance of regular exercise up to the patient's capacity limits. In this case, we recommend 20 min daily walking, 2 days a week of resistance training. Patient to monitor BP daily and bring records to PCP for further management. Follow-up: 1 week after methacholine challenge testing Not available 05/08/2023 17:33:14 Plan of Treatment Reminders Order Date Submit Date Provider Last Modified By Organization Details Last Modified Time Details Appointments None recorded. Lab alpha-1-ant itrypsin (aat) phenotype, serum 2022 023 [email or web address] 25 [facility] (Lab), [address] [place], [address], 3 10:27:58 BNP (B-type natriuretic peptide), serum or plasma [facility] [address] [place], [address], 3 17:36:52 ige, total, serum 2022 023 [email or web address] 25 [facility] (Lab), [address] [place], [address], 3 10:27:58 tb (M tuberculosi s), ifn-gamma leia, blood 2022 023 [email or web address] 25 [facility] (Lab), [address] [place], [address], 3 10:27:58 eosinophil count, manual, blood (OBS) 2022 023 [email or web address] [address] [place] [address] (Lab), [address] [place], [address], 3 10:27:58 igg subclasses 1+2+3+4, serum 2022 023 [facility] [address] [place] [address] (Lab), [address] [place], [address], 3 10:27:58 respiratory allergen panel - [facility] a 20[email or web address] [place] [address] (Lab), [address] [place], [address], 3 10:27:59 respiratory allergen panel - [facility] b 2022 [email or web address] [place] [address] (Lab), [address] [place], [address], 3 10:27:59 Referral None recorded. Procedures None recorded. Surgeries None recorded. Imaging XR, chest, 2 view 2022 023 [facility] ([facility]), [address] [place], [address], 3 13:32:04 PFT, complete 2022 023 [facility] ([facility]), [address] [place], [address], 3 09:38:21 Medication Orders ipratropium bromide 42 mcg (0.06 %) nasal spray 2022 023 [id number], [address], [place], [id number], 3 12:44:50 ipratropium bromide 42 mcg (0.06 %) nasal spray 2022 023 [id number], [address], [place], [id number], 3 11:55:24 Patient TargetsNo targets recorded. Patient Instructions Encounter Date Encounter Id Patient Instructions Last Modified By Organization Details Last Modified Time 05/08/2023 [id number] methacholine challenge* Not available 10/02/2023 14:26:28 Reason for Referral None Reported. Results Created Date Observation Date Name Description Value Unit Range Abnormal Flag Note LastModifiedBy Organization Detail LastModifiedTime 02/29/2011/04/2018 polys omnog alix, titra tion study No observ ation record ed. [email or web address] Not Available 2022 14:45:50 03/05/2003/05/2023 XR, chest , 2 view No observ ation record ed. [facility] [address] [place], [address], 03/05/2023 15:13:03 05/09/20 23 05/08/2023 PFT, compl ete No observ ation record ed. BARCODE [facility] ([facility]) [address] [place], [address], 05/09/2023 09:38:21 Result Notes None recorded. Problems Name Problem SNOMED Code Status Onset Date Resolution Date Notes Provider Name and Address Organization Details Recorded Time Chronic cough 35128603 Active 023 Jr Gibbs MD [address], [place], [address], [email or web address] [facility] [employer] 3 11:34:14 Posterior rhinorrhea 36930752 Active 023 Jr Gibbs MD [address], [place], [address], [facility] [employer] [facility] 3 11:53:39 Notes:Medical History: Depre ssion/Anxiety Migraine headaches Rhinitis to multiple environmental allergens with postnasal drip IgE 8 IU/mL Eosinophils 470/uL (+) Aspergillus fumigatus IgE AAT PiMZ 110 mg% Obesity Hypertension Procedure History: Cholecystectomy 2006 Rhinoplasty 2006 C-sections 2010, 2013 Turbinate resection 2017 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 Medical Equipment None Reported. Allergies No known drug allergies Medications Name Sig Start Date Stop Date Status Note LastModified by Organization Details LastModified Time dicloxacill in 500 mg capsule TAKE 1 CAPSULE BY MOUTH FOUR TIMES DAILY FOR 10 DAYS 03/05 completed Not Available Not Available Not Available clotrimazol e 10 mg cheko DISSOLVE 1 CHEKO BY MOUTH FIVE TIMES DAILY FOR 14 DAYS DIRECTED 03/05 completed Not Available Not Available Not Available trazodone 50 mg tablet TAKE 1/2 TO 1 TABLET BY MOUTH EVERY NIGHT AT BEDTIME NEEDED FOR INSOMNIA active Not Available Not Available No t Available cetirizine 10 mg tablet active Not Available Not Available Not Available Lidocaine Viscous 2 % mucosal solution SWISH AND SPIT 10 ML BY MOUTH EVERY 3 HOURS NEEDED FOR THROAT PAIN. MAX 8 DOSES / 24 HOURS. DO NOT EAT OR CHEW GUM FOR 60 MINUTES FOLLOWING USE 05/03 completed Not Available Not Available Not Available phenazopyri dine 200 mg tablet TAKE 1 TABLET BY MOUTH THREE TIMES DAILY NEEDED WITH OR AFTER MEALS active Not Available Not Available No t Available lisinopril 20 mg tablet TAKE 1 TABLET BY MOUTH DAILY 03/05 completed Not Available Not Available Not Available doxepin 10 mg capsule TAKE 1 CAPSULE BY MOUTH EVERY NIGHT AT BEDTIME NEEDED FOR INSOMNIA active Not Available Not Available No t Available sulfamethox azole 800 mg-trimetho prim 160 mg tablet TAKE 1 TABLET BY MOUTH TWICE DAILY FOR 3 DAYS DIRECTED 05/03 completed Not Available Not Available Not Available propranolol 40 mg tablet active Not Available Not Available Not Available amoxicillin 875 mg tablet TAKE 1 TABLET BY MOUTH TWICE DAILY FOR 10 DAYS 05/03 completed Not Available Not Available Not Available trazodone 100 mg tablet 03/05 completed Not Available Not Available Not Available amlodipine 10 mg tablet active Not Available Not Available Not Available lisinopril 30 mg tablet 03/05 completed Not Available Not Available Not Available montelukast 10 mg tablet active Not Available Not Available Not Available mupirocin 2 % topical ointment APPLY TOPICALLY TO THE AFFECTED AREA THREE TIMES DAILY FOR 5 DAYS 03/05 completed Not Available Not Available Not Available methylpredn isolone 4 mg tablets in a dose pack FOLLOW PACKAGE DIRECTION S 03/05 completed Not Available Not Available Not Available ipratropium bromide 42 mcg (0.06 %) nasal spray USE 1 SPRAY IN EACH NOSTRIL FOUR TIMES DAILY NEEDED active Not Available Not Available No t Available ondansetron 4 mg disintegrat ing tablet DISSOLVE 1 TABLET ON THE TONGUE EVERY 8 HOURS NEEDED FOR NAUSEA OR VOMITING active Not Available Not Available No t Available fluticasone propionate 50 mcg/actuati on nasal spray,suspe nsion active Not Available Not Available Not Available escitalopra m 20 mg tablet TAKE 1 TABLET BY MOUTH EVERY DAY active Not Available Not Available No t Available cyclobenzap rine 5 mg tablet TAKE 1 TABLET BY MOUTH THREE TIMES DAILY FOR 5 DAYS NEEDED FOR PAIN 03/05 completed Not Available Not Available Not Available bupropion HCl XL 300 mg 24 hr tablet, extended release TAKE 1 TABLET BY MOUTH EVERY DAY active Not Available Not Available No t Available bupropion HCl XL 150 mg 24 hr tablet, extended release TAKE 1 TABLET BY MOUTH EVERY DAY 03/05 completed Not Available Not Available Not Available magnesium 05/03 completed Not Available Not Available Not Available calcium 05/03 completed Not Available Not Available Not Available zinc 05/03 completed Not Available Not Available Not Available Vitamin D3 05/03 completed Not Available Not Available Not Available norethindro ne (contracept germán) 05/03 completed Not Available Not Available Not Available ProAir HFA 90 mcg/actuati on aerosol inhaler active Not Available Not Available Not Available hydrochloro thiazide 12.5 mg tablet active Not Available Not Available Not Available Probiotic 05/03 completed Not Available Not Available Not Available Vitals Date Recorded Heart rate Respiratory rate Provider Louise vicente and Address Organization Details Last Updated DateTime 03/05/2023 83 /min 15 /min Jr Gibbs MD [address], [address] [employer] 03/05/2023 11:47:50 Date Recorded Body weight Body temperature Body mass index (BMI) Body height Heart rate Oxygen saturation Oxygen saturation in Arterial blood by Pulse oximetry Systolic And Diastolic Provider Name and Address Organization Details Last Updated DateTime 3 915281. 86 g 97.9 [degF] 37.4 kg/m2 170.18 cm 83 /min 98 % 98 % 124/84 mm[Hg] Michelle Lu MA [facility] [employer] 11:36:41 Date Recorded Heart rate Respiratory rate Provider Louise vicente and Address Organization Details Last Updated DateTime 05/08/2023 72 /min 14 /min Jr Gibbs MD [address], [address], [place] [employer] [facility] [employer] 05/08/2023 12:54:24 Date Recorded Body height Body mass index (BMI) Body weight Body temperature Heart rate Oxygen saturation Oxygen saturation in Arterial blood by Pulse oximetry Systolic And Diastolic Provider Name and Address Organization Details Last Updated DateTime 3 170.18 cm 34.8 kg/m2 969021. 51 g 98.2 [degF] 72 /min 97 % 97 % 126/82 mm[Hg] Michelle Lu MA [email or web address] [facility] [employer] 12:28:14 Social History Question Answer Notes LastModified by Organizat ion Details LastModified Time Tobacco Smoking Status Former Smoker quit in 2006 Michelle Lu MA [facility] [employer] 03/05/2023 11:29:58 What Is Your Level Of Caffeine Consumption? Heavy Information not available 03/05/2023 In The 14 Days Before Symptom Onset, Have You Had Close Contact With A Laboratory-confir med COVID-19 While That Case Was Ill? No Information not available 03/05/2023 In The 14 Days Before Symptom Onset, Have You Had Close Contact With A Person Who Is Under Investigation For COVID-19 While That Person Was Ill? No Information not available 03/05/2023 What Type Of Diet Are You Following? REGULAR Information not available 03/05/2023 Do You Have An Electrostatic Air Filter? No Information not available 03/05/2023 Do You Have A Humidifier? Yes Information not available 03/05/2023 Do You Have Moisture Problems In Your Home? No Information not available 03/05/2023 What Was The Date Of Your Most Recent Tobacco Screening? 05/08/2023 Information not available 05/08/2023 Do You Have Any Pets? Yes Dogs, Cats Information not available 03/05/2023 Do You Use Your Seat Belt Or Car Seat Routinely? Yes Information not available 03/05/2023 Do You Have Smoke And Carbon Monoxide Detectors In Your Home? Yes Information not available 03/05/2023 Are You Passively Exposed To Smoke? No Information no t available 03/05/2023 Do You Use Sunscreen Routinely? Yes Information not available 03/05/2023 Have You Recently Traveled Abroad? No Information not available 03/05/2023 Do You Have Any Dietary Restrictions? No Information not available 03/05/2023 Sex: Unknown Functional Status Question Answer Note LastModified by Organizat ion Details LastModified Time Do you use any illicit or recreational drugs? No Information not available 03/05/2023 Do you or have you ever used any other forms of tobacco or nicotine? No Information not available 03/05/2023 What is your level of alcohol consumption? Occasional Information not available 03/05/2023 Are you currently employed? Yes Information not available 03/05/2023 Have you been exposed to chemicals or toxins? 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 Family History Relationship Description Onset Age of this Age Resolved Age Notes LastModified by Organization Details LastModified Time Father Hypertensive disorder Not available 2022 11:26:56 Father Diabetes mellitus Not available 2022 11:27:05 Father Disorder of thyroid gland Not available 2022 11:27:39 Father Hodgkin's disease (clinical) Not available 03/05 11:46:03 Father Basal cell carcinoma of skin Not available 2022 11:46:12 Father Malignant melanoma Not available 2022 11:46:21 Mother Hypertensive disorder Not available 2022 11:27:51 Mother Prediabetes Not availab le 03/05/2023 11:28:04 Mother Dementia Not available 03/05/2023 11:28:14 Mother Alcoholism Not availabl e 03/05/2023 11:28:38 Maternal Aunt Asthma Not availa ble 03/05/2023 12:01:29 Paternal Grandmother Chronic obstructive pulmonary disease Not available 2022 12:01:41 Paternal Grandmother Malignant neoplasm of urinary bladder Not available 2022 12:02:07 Paternal Grandfather Heart disease Not available 2022 12:02:24 Maternal Grandfather Diabetes mellitus Not available 2022 12:02:43 Maternal Grandfather Alzheimer's disease Not available 2022 12:02:56 Maternal Grandmother Cerebrovascu lar accident Not available 06/2023 12:03:10 Maternal Grandmother Epilepsy Not available 03/05 12:03:19 Maternal Grandmother Dementia Not available 03/05 12:03:27 Son Asthma Not available 09/2023 12:44:32 Sister Asthma Not available 09/2023 12:44:29 Medical History No medical history recorded. Gynecological HistoryNo gynecological history recorded. Obstetrics History GPAL:G 0 P 0 0 0 0 Past Encounters Encounter ID Performer Location Encounter Start Date Encounter Closed Date Diagnosis/Indication Diagnosis SNOMED-CT Code Diagnosis ICD10 Code Diagnosis IMO Codes Diagnosis Note [id number] Jr Gibbs MD [facility] [address] 03/05/2023 10:57:12 03/06/2023 08:17:31 Chronic cough 69435871 R05.3 R06.00 T78.40XA D89.9 Posterior rhinorrhea 758 91783 R09.82 [id number] MD GOS[facility] [address] 05/08/2023 12:08:13 05/09/2023 08:00:28 Chronic cough 26682681 R05.3 R06.00 T78.40XA D89.9 Posterior rhinorrhea 758 88199 R09.82 Health Concerns Section Related Observation LastModified by Organization Detai ls LastModified Time None Recorded Concern Status LastModified by Organization Details LastModified Time None Recorded Advance Directives Directive None Recorded Payers Insurance Date Sequence Insurance Name Policy Number Policy Jarquin Covered Member ID Jarquin Member ID Guarantor Name 05/29/2023 1 [facility] [place] Fifi Fallon [id number] Fifi Fallon Notes Date Note Type Note Provider Name and Address Organization Details Recorded Time 03/05/2023 text/html Primary care/Referring provider: LELO Julio Patient is here to go over cough evaluation and management. Initial development of cough: uration of cough: 7 monthsNature of cough: productive of yellowish white sputumCondition of cough: worseningTiming of cough: afternoon and bedtimeFrequency: every hourLimits activities: yesAggravating factors: speed walking, running across the house, blount in the produce aisleAlleviating factors: resting Treatment history: Montelukast daily etirizine daily 07/2022Fluticasone nasal spray nightly since lbuterol HFA as needed since 02/2023 Other symptoms:Drooling: noDysarthria: noNeck pain: noOdynophagia: noDysphagia: noWeak mastication: noFacial weakness: noNasal speech: noProtruding tongue: noWheezing: noChest tightness: yesOrthopnea: noFrequent throat clearing or swallowing: yesPalpitations: noHeartburn: noEdema: no Modified [employer] [place] (mMRC) Dyspnea Scale - Grade 2Grade 0 I only get breathless with strenuous exercise .Grade 1 I get short of breath when hurrying on the level or walking up a slight hill .Grade 2 I walk slower than people of the same age on the level because of breathlessness or have to stop for breath when walking at my own pace on the level .Grade 3 I stop for breath after walking about 100 yards or after a few minutes on the level .Grade 4 I am too breathless to leave the house or I am breathless when dressing . Environmental exposures:Nicotine smoke: 1 ppd 2002-2006Paint: noDye: noDust mites: yesMold: noDamp basement: noWood burning stove: noAnimal dander: dogs and catsCockroaches: noPollen: yesArsenic: noAsbestos: noBeryllium: noCadmium: noChromium: noCoal smoke: noDiesel fumes: noNickel: noSilica: noSoot: no EPWORTH SLEEPINESS SCALE (ESS) CHANCE OF DOZING SCORE0 = would never doze1 = slight chance of dozing2 = moderate chance of dozing3 = high chance of dozing SITUATION AND CHANCE OF DOZINGSitting and reading - 3Watching television - 2Sitting inactive in a public place (e.g. a theater or meeting) - 1As a passenger in a car for an hour without a break - 3Lying down to rest in the afternoon when circumstances permit - 3Sitting and talking to someone - 0Sitting quietly after lunch without alcohol - 2In a car, while stopped for a few minutes in the traffic - 0TOTAL SCORE 14Subjectively, patient has a moderate chance of dozing. Jr Gibbs MD [address] [place] [address], [facility] [address], [place], [address], [facility] [employer] [facility] 03/05/2023 12:09:23 05/08/2023 text/html Primary care/Referring provider: LELO Julio CC: My cough is better with the Atrovent nasal spray. Patient is here to go over her chest x-ray, lab data and PFT as part of her cough evaluation and management. Initial development of cough: uration of cough: 9 monthsNature of cough: productive of yellowish white sputumCondition of cough: stableTiming of cough: afternoon and bedtimeFrequency: every hourLimits activities: yesAggravating factors: speed walking, running across the house, blount in the produce aisleAlleviating factors: resting Treatment history: Montelukast daily etirizine daily 07/2022Fluticasone nasal spray nightly since lbuterol HFA as needed since 02/2023 Other symptoms:Drooling: noDysarthria: noNeck pain: noOdynophagia: noDysphagia: noWeak mastication: noFacial weakness: noNasal speech: noProtruding tongue: noWheezing: noChest tightness: yesOrthopnea: noFrequent throat clearing or swallowing: yesPalpitations: noHeartburn: noEdema: no Modified [employer] [place] (mMRC) Dyspnea Scale - Grade 2Grade 0 I only get breathless with strenuous exercise .Grade 1 I get short of breath when hurrying on the level or walking up a slight hill .Grade 2 I walk slower than people of the same age on the level because of breathlessness or have to stop for breath when walking at my own pace on the level .Grade 3 I stop for breath after walking about 100 yards or after a few minutes on the level .Grade 4 I am too breathless to leave the house or I am breathless when dressing . Environmental exposures:Nicotine smoke: 1 ppd 2002-2006Paint: noDye: noDust mites: yesMold: noDamp basement: noWood burning stove: noAnimal dander: dogs and catsCockroaches: noPollen: yesArsenic: noAsbestos: noBeryllium: noCadmium: noChromium: noCoal smoke: noDiesel fumes: noNickel: noSilica: noSoot: no EPWORTH SLEEPINESS SCALE (ESS) CHANCE OF DOZING SCORE0 = would never doze1 = slight chance of dozing2 = moderate chance of dozing3 = high chance of dozing SITUATION AND CHANCE OF DOZINGSitting and reading - 3Watching television - 2Sitting inactive in a public place (e.g. a theater or meeting) - 2As a passenger in a car for an hour without a break - 3Lying down to rest in the afternoon when circumstances permit - 3Sitting and talking to someone - 0Sitting quietly after lunch without alcohol - 2In a car, while stopped for a few minutes in the traffic - 0TOTAL SCORE 15Subjectively, patient has a moderate chance of dozing. Jr Gibbs MD [address] [place] [address], [phone], [place] - [facility] 05/08/2023 17:36:31 OBGyn Episode No OBEpisode recorded.
--- OUTSIDE RECORDS SUMMARY | 2025-08-01 18:19 | XMS_ITS | Clinical Summary ---
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 Gender Identity Not on file Sexual Orientation Not on file Plan of Treatment Health Maintenance Due Date Last Done Comments Hepatitis C Virus (HCV) Screening 1988 Pap Smear 2009 Cervical Cancer Screening (CCS) 2018 HPV/Cotest 2018 Influenza Immunization (#1) 2025 10/0 01/2018, 08/22/2017, 11/08/2016, Additional history exists SARS-COV-2 Immunization ( season) 2025 11/01/2021 Respiratory Syncytial Virus (RSV) Immunization (Adult) (1 - 1-dose 75+ series) 2063 Hepatitis B Immunization Completed 999, 04/21/1999, 03/20/1999 Meningococcal Immunization (ACWY) Aged Out 07/22/2007 No longer eligible based on patient's age to complete this topic Human Papillomavirus (HPV) Immunization Completed 07/01/2008, 10/10/2007, 07/22/2007 DTaP/Tdap/Td Immunization Discontinued 2011, 06/01/1999, 01/05/1993, Additional history exists TdaP Immunization Completed 09/02/2012 Pneumococcal Immunization Combined Aged Out No longer eligible based on patient's age to complete this topic Rotavirus Immunization Aged Out No lo nger eligible based on patient's age to complete this topic
--- OUTSIDE RECORDS SUMMARY | 2025-08-01 18:19 | XMS_ITS | Clinical Summary ---
Author Organization [facility] Address [address] [place] [address] Care Team Providers Care Newsstand Vendor Name Role Phone None, Provider MD Primary Care Provider Unavaila ble Allergies No known active allergies Medications psyllium (KONSYL) 100 % Pack Take 1 packet by mouth daily. May substitute with any fiber supplement 30 packet Active Encounters Date Type Department Care Team Description 07/31/2025 11:11 PM CDT - 08/01/2025 2:15 AM CDT Emergency [facility] [place] [address] Alvin Barreto MD,PHD Abdominal Pain Discharge Disposition: Home or Self Care (Routine Discharge) 07/31/2025 Travel from Last 3 Months Social History Tobacco Use Types Packs/Day Years [...] Mass Index 37.15 07/31/2025 10:25 PM CDT Plan of Treatment Health Maintenance Due Date Last Done Comments Cervical Cancer Screening Pap Smear (Age 30 to 64) Every 3 Years 1988 Annual Physical 1991 Hepatitis C 2006 Cervical Cancer Screening Pap with HPV Testing (Age 30 to 64) Every 5 Years 2018 Cervical Cancer Screening with HPV 2018 DTaP, Tdap and Td Vaccines (7 - Td or Tdap) 09/02/2022 09/02/2012, 06/01/1999, 01/05/1993, Additional history exists COVID-19 Vaccine ( season) 2025 11/01/2021, 12/01/2020, 11/03/2020 Influenza Adult (#1) 2025 07/31/2018, 08/22/2017, 11/08/2016, Additional history exists Hepatitis B Vaccines Completed 09/20/1999, 04/21/1999, 03/20/1999 Meningococcal Vaccine Aged Out 07/22/2007 No tabatha lacy eligible based on patient's age to complete this topic HPV Vaccines Completed 07/01/2008, 09/27, 07/22/2007 Meningococcal B Vaccine Aged Out No l onger eligible based on patient's age to complete this topic Pneumococcal Vaccine: Pediatrics (0 to 5 Years) and At-Risk Patients (6 to 49 Years) Aged Out No longer eligible based on patient's age to complete this topic RSV Immunizations Under 20 Months Aged Out No longer eligible based on patient's age to complete this topic Procedures Procedure Name Priority Date/Time Associated Diagnosis Comments CTA CHEST+ABD+PEL STAT 08/01/2025 12: 42 AM CDT ECG 12-LEAD Routine 07/31/2025 11:41 PM CDT MAGNESIUM STAT 07/31/2025 11:26 PM CDT TROPONIN, QUANT STAT 07/31/2025 11:26 PM CDT CHORIONIC GONADOTROPIN HCG QL STAT 07/31/2025 11:26 PM CDT COMPREHENSIVE METABOLIC PANEL STAT 07/31/2025 11:26 PM CDT CBC W/DIFF AUTOMATED STAT 07/31/2025 11:26 PM CDT from Last 3 Months Results * CTA CHEST+ABD+PEL (08/01/2025 12:42 AM [...] 1:32 AM Narrative 08/01/2025 1:32 AM CDT [address] [address] EXAM: CTA CHEST+ABD+PEL INDICATION: Abdominal pain, blood [...] Procedure Note Mahin Ruiz MD - 08/01/[address] [address] EXAM: CTA CHEST+ABD+PEL INDICATION: Abdominal pain, blood [...] CDT) 07/31/2025 11:[address] [facility] - 08/01/2025 8:[address] [facility] [address] [facility] Test Date: 2025-07-31 Pat Name: FIFI ANDRADE Department: 41 Room: [facility] Gender: F [employer] Team Member: [id number] : 1990 Requested By: NESS CONTRERAS Order Number: [id number] Reading MD: Reyes Falcon Measurements Intervals [place] Rate: 84 P: 20 DE: 174 QRS: -27 QRSD: 88 T: 65 QT: 379 QTc: 450 Interpretive Statements SINUS RHYTHM VOLTAGE CRITERIA FOR LVH [MEETS CRITERIA IN ONE OF: R(aVL), S(V1), R(V5), R(V5/V6)+S(V1)] POSSIBLE ANTERIOR MYOCARDIAL INFARCTION , PROBABLY OLD [30 ms Q WAVE IN V3/V4, OR R < 0.2 mV IN V4] No previous ECG available for comparison Procedure Note Reyes Falcon MD - 08/01/2025 [facility] [address] [facility] Test Date: 2025-07-31 Pat Name: FIFI ANDRADE Department: 41 Room: [facility] Gender: F [employer] Team Member: [id number] : 1990 Requested By: NESS CONTRERAS Order Number: [id number] Reading MD: Reyes Falcon Measurements Intervals [place] Rate: 84 P: 20 DE: 174 QRS: -27 QRSD: 88 T: 65 QT: 379 QTc: 450 Interpretive Statements SINUS RHYTHM VOLTAGE CRITERIA FOR LVH [MEETS CRITERIA IN ONE OF: R(aVL), S(V1),R(V5), R(V5/V6)+S(V1)] POSSIBLE ANTERIOR MYOCARDIAL INFARCTION , PROBABLY OLD [30 ms Q WAVE IN V3/V4, OR R < 0.2 mV IN V4] No previous ECG available for comparison us [facility] ORDERABLES Final Result [facility] * (ABNORMAL) COMPREHENSIVE METABOLIC PANEL (07/31/2025 11:26 PM CDT) GLUCOSE 104(H) 70 - 99 MG/DL 08/01/2025 12:15 AM CDT [facility] BUN 11 7 - 18 MG/DL 08/01/2025 12:15 AM CDT [facility] CREATININE S/P/B 0.78 0.55 - 1.02 MG/DL 08/01/2025 12:15 AM CDT [facility] SODIUM S/P/B 141 136 - 145 MMOL/L 08/01/2025 12:15 AM CDT [facility] POTASSIUM S/P/B 3.6 3.5 - 5.1 MMOL/L 08/01/2025 12:15 AM CDT [facility] CHLORIDE S/P/B 108 97 - 115 MMOL/L 08/01/2025 12:15 AM CDT [facility] CO2 26.0 21 - 32 MMOL/L 08/01/2025 12:15 AM CDT [facility] CALCIUM S/P/B 8.8 8.5 - 10.1 MG/DL 08/01/2025 12:15 AM CDT [facility] BILIRUBIN TOTAL S/P/B 0.2 0.2 - 1.2 MG/DL 08/01/2025 12:15 AM CDT [facility] Comment: THIS ASSAY IS NOT RECOMMENDED FOR PATIENTS UNDERGOING TREATMENT WITH ELTROMBOPAG DUE TO THE POTENTIAL FOR FALSELY ELEVATED RESULTS. TOTAL PROTEIN S/P/B 7.5 6.4 - 8.2 G/DL 08/01/2025 12:15 AM CDT [facility] ALBUMIN S/P/B 3.7 3.4 - 5.0 G/DL 08/01/2025 12:15 AM CDT [facility] AST 9(L) 15 - 37 U/L 08/01/2025 12:15 AM CDT [facility] ALT 19 14 - 55 U/L 08/01/2025 12:15 AM CDT [facility] ALKALINE PHOSPHATASE S/P/B 93 50 - 136 U/L 08/01/2025 12:15 AM CDT [facility] ANION GAP 7.0 2 - 10 MMOL/L 08/01/2025 12:15 AM CDT [facility] BUN CREATININE RATIO 14.1 6 - 26 08/01/2025 12:15 AM T [facility] A/G RATIO 1.0 1.0 - 2.0 RATIO 08/01/2025 12:15 AM CDT [facility] GFR ESTIMATE >90 >90 ML/MIN/1.7 3 M2 08/01/2025 12:15 AM CDT [facility] Comment: NOTE: eGFR is not calculated for patients <18 years of age or gender unknown. This is an estimated GFR calculation using the new CKD EPI creatinine equation without race and so does not require a correction factor for race. This estimated GFR should not be used for calculating drug doses. 07/31/2025 11:2 6 PM CDT [facility] Final Result [facility] [address] [place] [address], [place] [phone] * Qualitative HCG (07/31/2025 11:26 PM CDT) PREG SCREEN-SERUM NEGATIVE 07/31/2025 11:53 PM CDT [facility] 07/31/2025 11:2 6 PM CDT [facility] Final Result [facility] [address] [place] [address], * (ABNORMAL) CBC W/DIFF AUTOMATED (07/31/2025 11:26 PM CDT) [facility] WBC 11.89(H) 4.5 - 11.0 x10'3/uL 07/31/2025 11:45 PM CDT [facility] RBC 4.42 4.20 - 5.40 x10'6/uL 07/31/2025 11:45 PM CDT [facility] HGB 11.8(L) 12.0 - 16.0 G/DL 07/31/2025 11:45 PM CDT [facility] HCT 36.8(L) 38.0 - 48.0 % 07/31/2025 11:45 PM CDT [facility] MCV 83.3 81.0 - 99.0 FL 07/31/2025 11:45 PM CDT [facility] MCH 26.7(L) 27.0 - 31.0 PG 07/31/2025 11:45 PM CDT [facility] MCHC 32.1 32.0 - 36.0 G/DL 07/31/2025 11:45 PM CDT [facility] RDW 14.4 11.5 - 14.5 % 07/31/2025 11:45 PM CDT [facility] PLT 387 130 - 400 x10'3/uL 07/31/2025 11:45 PM CDT [facility] MPV 9.7 9.3 - 12.2 FL 07/31/2025 11:45 PM CDT [facility] DIFFERENTIAL TYPE AUTOMATED DIFFERENTIAL 07/31/2025 11:45 PM CDT [facility] NEUTROPHILS % 60.6 % 07/31/2025 11:45 PM CDT [facility] LYMPHOCYTES % 25.7 % 07/31/2025 11:45 PM CDT [facility] MONOCYTES % 8.2 % 07/31/2025 11:45 PM CDT [facility] EOSINOPHILS 4.4 % 07/31/2025 11:45 PM CDT [facility] BASOPHILS 0.8 % 07/31/2025 11:45 PM CDT [facility] IMMATURE GRANS % 0.3 % 07/31/20 11:45 PM CDT [facility] ABS. NEUTROPHILS 7.20 1.80 - 7.70 x10'3/uL 07/31/2025 11:45 PM CDT [facility] ABS. LYMPHOCYTES 3.06 1.00 - 4.80 x10'3/uL 07/31/2025 11:45 PM CDT [facility] ABS. MONOCYTES 0.97(H) 0.24 - 0.86 x10'3/uL 07/31/2025 11:45 PM CDT [facility] ABS. EOSINOPHILS 0.52(H) 0.04 - 0.36 x10'3/uL 07/31/2025 11:45 PM CDT [facility] ABS. BASOPHILS 0.10(H) 0.01 - 0.08 x10'3/uL 07/31/2025 11:45 PM CDT [facility] ABS. IMMATURE GRANULOCYTES 0.04 0.00 - 0.49 x10'3/uL 07/31/2025 11:45 PM CDT [facility] 07/31/2025 11:2 6 PM CDT us [facility] Final Result Performing Organization Address City/[facility]/ZIP Co de Phone Number [facility] [address] [place] [address], [place] [phone] * TROPONIN, QUANT (07/31/2025 11:26 PM CDT) TROPONIN I HIGH SENSITIVITY 10 <54 ng/L 08/01/2025 12:15 AM CDT [facility] Comment: HIGH DOSES OF BIOTIN, TROPONIN-SPECIFIC AUTOANTIBODIES, AND ANTIBODY THERAPY CONTAINING HAMA MAY INTERFERE WITH THIS TEST RESULT. CORRELATION TO CLINICAL HISTORY AND PRESENTATION RECOMMENDED. 07/31/2025 11:2 6 PM CDT us [facility] Final Result Performing Organization Address [facility] Co de Phone Number [facility] [address] [place] [address], [place] [phone] * MAGNESIUM (07/31/2025 11:26 PM CDT) Pathologist [facility] MAGNESIUM 2.0 1.8 - 2.4 MG/DL 08/01/2025 12:15 AM CDT [facility] 07/31/2025 11:2 6 PM CDT us [facility] Final Result Performing Organization Address City/[facility] Co de Phone Number [facility] [address] [place] [address], from Last 3 Months Insurance Care Teams Newsstand Vendor Relationship Specialty Start Date End Date None, Provider, PCP - General UNKNOWN PHYSICIAN SPECIALTY 07/31/25
--- OUTSIDE RECORDS SUMMARY | 2025-08-01 18:19 | XMS_ITS | Encounter Summary ---
Author Organization [facility] Address [address] [place] [address] Care Team Providers Care Plant Attendant Name Role Phone None, Provider Primary Care Provider Hazela ble Encounter Details Date Type Department Care Team (Latest Contact Info) Description 07/31/2025 Travel Social History Tobacco Use Types Packs/Day Years Used Date Smoking Tobacco: Never Smokeless Tobacco: Never Comments Unknown Sex and Gender Information Value Date Recorded Sex Assigned at Not on file Legal Sex Female 10:20 PM CDT Gender Identity Not on file Sexual Orientation Not on file documented as of this encounter Functional Status * Calculated C-SSRS Risk Score (Lifetime/Recent) Answer Date of Assessment Author Status No Risk Indicated 07/31/2025 10:24 PM CDT Omar Apodaca RN Active * Hooker Suicide Severity Rating Scale (Screener/Recent Self-Report) Question [...] A ctive documented as of this encounter Plan of Treatment Not on file documented as of this encounter Visit Diagnoses Not on filedocumented in this encounter Care Teams Plant Attendant Relationship Specialty Start Date End Date None, Provider, PCP - General UNKNOWN PHYSICIAN SPECIALTY 07/31/25 documented as of this encounter
--- NOTE | 2025-08-01 18:21 | ECG_ITS ---
Test Date: 2025-08-01 18:33:51 Measurements Intervals [place] Rate: 77 P: 21 SD: 169 QRS: -22 QRSD: 101 T: 60 QT: 390 QTc: 444 Interpretive Statements SINUS RHYTHM INCOMPLETE RIGHT BUNDLE BRANCH BLOCK VOLTAGE CRITERIA FOR LVH BORDERLINE ECG No previous ECG available for comparison Electronically Signed On 08-01-2025 19:28:57 CDT by Ezekiel Robertson D.O.
[2025-08-01 18:39] LABS: Hematocrit 37.4 % (37.0-47.0); Hemoglobin 11.7 g/dL (12.0-15.0); Immature Granulocyte Percent A 0.4 % (0-0.5); Lymphocytes Absolute Auto 2.52 K/mm3 (0.9-3.2); Mean Corpuscular HGB Conc 31.3 g/dl (32-36); Mean Corpuscular Hemoglobin 26.6 pg (26-34); Mean Corpuscular Volume 85.0 fl (80-100); Nucleated Red Blood Cells Absolute Auto 0.000 K/mm3 (0.0-0.012); Nucleated Red Blood Cells Perc 0.0 % (0.0-0.2); Platelet Count Result 381 k/mm3 (150-375); Red Blood Count 4.40 M/mm3 (4.2-5.4); White Blood Count 11.3 K/mm3 (4.5-10.0)
[2025-08-01 18:50] LABS: Alanine Aminotransferase 15 U/L (6-35); Albumin Level 4.4 g/dL (3.5-5.1); Alkaline Phosphatase 78 U/L (38-126); Anion Gap 10 mmol/L (4-12); Aspartate Amino Transferase 22 U/L (14-36); Bilirubin,Total 0.3 mg/dL (0.2-1.3); Blood Urea Nitrogen 13 mg/dL (7-17); Calcium 9.0 mg/dL (8.4-10.2); Carbon Dioxide 26 mmol/L (22-30); Chloride 101 mmol/L (98-107); Estimated CRCL calculation 110 ml/min; Estimated Glomerular Filt Rate > 60; Glucose 133 mg/dL (65-110); Lipase 68 U/L (23-300); Potassium 3.9 mmol/L (3.4-5.0); Sodium 137 mmol/L (137-145); Total Protein 7.9 g/dL (6.3-8.2)
[2025-08-01 18:57] LABS: INR 1.1; Partial Thromboplastin Time 29.6 Seconds (22.3-36.8); Prothrombin Time 13.7 Seconds (11.1-14.7)
[2025-08-01 19:02] LABS: Troponin I < 0.012 ng/mL (0.000-0.034)
--- NOTE | 2025-08-01 19:12 | ED.RECABL ---
HPI - Recheck/Abnormal Lab/Rx General Chief Complaint: Recheck/Abnormal Lab/Rx Stated Complaint: HTN Time Seen by Provider: 08/01/25 19:05 Source: patient Mode of arrival: ambulatory Limitations: no limitations History of Present Illness HPI narrative: Patient presents with report of hypertension. Has noticed increased blood pressure for the past few days. Does not consistently have a PCP; [place] physician [place] [employer]. Has a family history of HTN but no personal diagnosis of it other than gestational hypertension and then had been on propranolol and amlodipine for migraines, these have since been discontinued. Has not checked her BP in a long time but presented to [facility] last night for blood in stool and BP was initially 222/134. She was told the pain, headache, and nausea were likely contributing, improved to SBP 176 but was 202/134 at discharge and felt like this wasn't taken seriously there. Has intermittently been experiencing chest pressure (not pain). Feels like something is sitting on her chest at times with right arm numbness at times. No vision changes/blurred/double. Has been having daily headaches. She will intermittently be short of breath. Has chalked some of her symptoms up to being overweight. Intermittent nausea but no vomiting. No cough, fevers, chills, diarrhea. LMP 07/24. [place] like she had edema at her ankles. No history thyroid dysfunction. Deneis recreational drugs. Cardiac risk factors HTN: No HLD: No DM: No Obese: Yes Smoker: No Personal history W[place]/TIA/CVA: No Fam Hx [place] in first degree relative <65yo: No Related Data Home Medications ?Medication ?Instructions ?Recorded ?Confirmed ?Last Taken ?Type escitalopram oxalate 20 mg tablet 20 mg PO DAILY 01/22/22 01/31/23 Unknown History norethindrone (contraceptive) 0.35 0.35 mg PO DAILY 01/22/22 01/31/23 Unknown History mg tablet bupropion HCl 300 mg 24 hr tablet, mg PO 01/31/23 01/31/23 Unknown History extended release lisinopril 30 mg tablet 30 mg PO DAILY 01/31/23 01/31/23 Unknown History montelukast 10 mg tablet 10 mg PO DAILY 01/31/23 01/31/23 Unknown History propranolol 40 mg tablet 40 mg PO DAILY 01/31/23 01/31/23 Unknown History Allergies Allergy/AdvReac Type Severity Reaction Status Date / Time No Known Allergies Allergy Verified 08/01/25 18:21 [facility] Past Medical History Medical History (Updated 08/04/25 @ 04:53 by Luly Beach MD) Migraine Gestational hypertension Depression Asthma as child Seasonal allergies Surgical History Surgical History Previous section X2 Hx of cholecystectomy History of rhinoplasty Family History Family History (Updated 08/04/25 @ 04:47 by Luly [place] MD) Mother Hypertension Diabetes mellitus Father Hypertension Diabetes mellitus Thyroid dysfunction Grandparent Acute myocardial infarction before 45yo Social History Social History Smoking status: Never smoker Alcohol intake: current Alcohol use details: social rare Substance use: never Living arrangements: with family Gender identity (if verbalized by the patient): Female Exam Narrative: GENERAL: Well-appearing, well-nourished, and in no acute distress. HEAD: Normocephalic, atraumatic. EYES: Non injected, non icteric ENT: Nares clear, no rhinorrhea or epistaxis. Gross auditory acuity intact. NECK: Supple. No meningismus. CHEST: Speaking in full sentences. No respiratory distress. HEART: Regular rate and rhythm. . ABDOMEN: Obese but Soft, nondistended. EXTREMITIES: Normal range of motion. No lower extremity edema, either pedal or at bilateral shins. SKIN: Warm, dry, no rash. NEURO: No focal deficits. Alert and oriented. Answering questions. Following commands. Normal speech without aphasia or dysarthria. PSYCH: Normal mood and affect. Course Vital Signs Vital signs: Vital Signs Temperature 98.6 F 08/01/25 18:18 Pulse Rate 88 08/01/25 18:18 Respiratory Rate 16 08/01/25 18:18 Blood Pressure 207/112 H 08/01/25 18:18 Pulse Oximetry 100 08/01/25 18:18 Temperature 98.6 F 08/01/25 18:18 Pulse Rate 90 08/01/25 23:52 Respiratory Rate 18 08/01/25 23:52 Blood Pressure 182/123 H 08/01/25 23:52 Pulse Oximetry 99 08/01/25 23:52 MDM - Recheck/Abnormal Lab/Rx MDM Narrative Medical decision making narrative: Patient presents with concern about her BP being elevated. First noticed when she went to [facility] for blood in stool and 222/134 upon arrival, improvement to SBP 176 but 202[facility]. No prior diagnosis although had gestational hypertension. Also had been on propranalol and amlodipine for migraines. In the emergency department she is afebrile with vital signs notable for hypertension. Mild leukocytosis. 10 mg labetalol IV push ordered. HEART SCORE History 2 highly suspicious 1 moderately suspicious 0 slightly suspicious History score [address] depression/elevation not due to LBBB, LVH, or digoxin [address] depression but LBBB, LVH, nonspecific repolarization changes 0 normal ECG score 1 Age 2 >/= 65 1 45-64 0 <45 Age score 0 Risk factors (HTN, hypercholesterolemia, DM, obesity with BMI >30, current smoker or cessation </=3mo), positive fam hx with parent or sibling with CVD before age 65, atherosclerotic disease (prior [place], PCI/CABG, CVA/TIA, or peripheral arterial disease) 2 >/= 3 risk factors or history of atherosclerotic dz 1 - 1-2 risk factors 0 no known risk factors Risk factor score 1 Initial Troponin 2 >3 times normal limit 1 1-3 times normal limit 0 less than or equal to normal limit Troponin score 0 Total HEART Score 2. Glucose mildly elevated but no anion gap or acidosis. Normal renal function and no liver enzyme abnormalities. test negative. Urinalysis without abnormalities including no proteinuria or signs of infection. UDS negative. BNP, TSH, viral swab negative. Blood pressure 188/126. Repeat labetalol 10mg IVP ordered while await CT results. Repeat troponin within normal limits. Blood pressure still elevated but patient has been asymptomatic for several hours. We discussed that it is not indicated to lower patient's blood pressure to normal given that she in theory may have been quite hypertensive for several days to weeks to months. She will be given a prescription for an antihypertensive. Initial plan was for 5 mg daily however it did appear that a prescription had already been electronically prescribed per review of her record, today, [facility] She does note that she called doctors on demand and assumes that this is where this is from. I did note that in case there are any complications with that prescription, I would provide a paper prescription for the same medication and dosage if needed. She will keep a log of her blood pressure readings at home both before taking medication and after treating them as well as if she is having any symptoms verses being asymptomatic and she will take this log for follow-up appointment with her primary care physician. She confirms she has a blood pressure cuff at home but I indicated that she should not be checking her blood pressure more than 1-2 times per day. Given strict emergency department return precautions as well as provided contact/referral information for Cardiology given her low but not negligible heart score. Also provided the name of a primary care provider if needed although she does [place] [employer]. Stable for discharge. I did provide her a work note excusing her tomorrow that she can fill these tasks. Differential Diagnosis Differential diagnosis: Likely other (Hypertensive emergency/urgency, hypertensive encephalopathy, PRES; ACS, aortic dissection; thyroid dysfunction; drug use, complications; untreated HTN; considered med withdrawal) Lab Data 08/01/25 18:34 08/01/25 18:34 Labs: Lab Results 08/01/25 08/01/25 08/01/25 Range/Units 18:34 18:34 19:34 WBC 11.3 H (4.5-10.0) K/mm3 RBC 4.40 (4.2-5.4) M/mm3 Hgb 11.7 L (12.0-15.0) g/dL Hct 37.4 (37.0-47.0) % MCV 85.0 (80-100) fl MCH 26.6 (26-34) pg MCHC 31.3 L (32-36) g/dl RDW 14.3 (11.5-14.5) % Plt Count 381 H (150-375) k/mm3 MPV 9.5 (7.4-10.4) fl Immature Gran % (Auto) 0.4 (0-0.5) % Neut % (Auto) 64.5 (45.5-73.1) % Lymph % (Auto) 22.3 (18.3-44.2) % [place] % (Auto) 7.7 (2.6-8.5) % Eos % (Auto) 4.1 (0-4.4) % Baso % (Auto) 1.0 (0.2-1.2) % Lymph # (Auto) 2.52 (0.9-3.2) K/mm3 [place] # (Auto) 0.9 H (0.1-0.6) K/mm3 Eos # (Auto) 0.5 H (0-0.3) K/mm3 Baso # (Auto) 0.1 (0.0-0.1) K/mm3 Abs Immat Gran (auto) 0.04 H (0.00-0.031) K/mm3 Absolute Neuts (auto) 7.3 H (1.3-6.7) K/mm3 Absolute Nucleated RBC 0.000 (0.0-0.012) K/mm3 Nucleated RBC % 0.0 (0.0-0.2) % PT 13.7 (11.1-14.7) Seconds INR 1.1 APTT 29.6 (22.3-36.8) Seconds Sodium 137 (137-145) mmol/L Potassium 3.9 (3.4-5.0) mmol/L Chloride 101 (98-107) mmol/L Carbon Dioxide 26 (22-30) mmol/L Anion Gap 10 (4-12) mmol/L BUN 13 (7-17) mg/dL Creatinine 0.76 (0.7-1.0) mg/dL Estim Creat Clear Calc 110 ml/min Estimated GFR > 60 (59 - ) Glucose 133 H (65-110) mg/dL Calcium 9.0 (8.4-10.2) mg/dL Magnesium (1.6-2.3) mg/dL Total Bilirubin 0.3 (0.2-1.3) mg/dL AST 22 (14-36) U/L ALT 15 (6-35) U/L Alkaline Phosphatase 78 (38-126) U/L Troponin I < 0.012 (0.000-0.034) ng/mL NT-Pro-B Natriuret Pep 66 Cancelled (19.9-100) pg/mL Total Protein 7.9 (6.3-8.2) g/dL Albumin 4.4 (3.5-5.1) g/dL Lipase 68 (23-300) U/L TSH 2.080 (0.465-4.680) uIU/mL Urine Color (Yellow) Urine Appearance (Clear) Urine pH (5.0-9.0) Ur Specific [place] (1.001-1.035) Urine Protein (Negative) mg/dL Urine Glucose (UA) (Negative) mg/dL Urine Ketones (Negative) mg/dL Ur Blood (Man) (Negative) Urine Nitrate (Negative) Urine Bilirubin (Negative) Urine Urobilinogen (<2.0) mg/dL Leukocyte Esterase Rfl (Negative) RADHA/UL POC Urine HCG, Qual Negative (Negative) Urine Opiates Screen (Negative) Urine Methadone Screen (Negative) Ur Barbiturates Screen (Negative) Ur Phencyclidine Scrn (Negative) Ur Amphetamine Screen (Negative) U Benzodiazepines Scrn (Negative) Urine Cocaine Screen (Negative) U Cannabinoids Screen (Negative) Influenza A (RT-PCR) (Negative) Influenza B (RT-PCR) (Negative) RSV (RT-PCR) (Negative) SARS-CoV-2 RNA (RT-PCR) (Negative) 08/01/25 08/01/25 08/01/25 Range/Units 19:39 19:53 21:25 WBC (4.5-10.0) K/mm3 RBC (4.2-5.4) M/mm3 Hgb (12.0-15.0) g/dL Hct (37.0-47.0) % MCV (80-100) fl MCH (26-34) pg MCHC (32-36) g/dl RDW (11.5-14.5) % Plt Count (150-375) k/mm3 MPV (7.4-10.4) fl Immature Gran % (Auto) (0-0.5) % Neut % (Auto) (45.5-73.1) % Lymph % (Auto) (18.3-44.2) % [place] % (Auto) (2.6-8.5) % Eos % (Auto) (0-4.4) % Baso % (Auto) (0.2-1.2) % Lymph # (Auto) (0.9-3.2) K/mm3 [place] # (Auto) (0.1-0.6) K/mm3 Eos # (Auto) (0-0.3) K/mm3 Baso # (Auto) (0.0-0.1) K/mm3 Abs Immat Gran (auto) (0.00-0.031) K/mm3 Absolute Neuts (auto) (1.3-6.7) K/mm3 Absolute Nucleated RBC (0.0-0.012) K/mm3 Nucleated RBC % (0.0-0.2) % PT (11.1-14.7) Seconds INR APTT (22.3-36.8) Seconds Sodium (137-145) mmol/L Potassium (3.4-5.0) mmol/L Chloride (98-107) mmol/L Carbon Dioxide (22-30) mmol/L Anion Gap (4-12) mmol/L BUN (7-17) mg/dL Creatinine (0.7-1.0) mg/dL Estim Creat Clear Calc ml/min Estimated GFR (59 - ) Glucose (65-110) mg/dL Calcium (8.4-10.2) mg/dL Magnesium 1.9 (1.6-2.3) mg/dL Total Bilirubin (0.2-1.3) mg/dL AST (14-36) U/L ALT (6-35) U/L Alkaline Phosphatase (38-126) U/L Troponin I < 0.012 (0.000-0.034) ng/mL NT-Pro-B Natriuret Pep (19.9-100) pg/mL Total Protein (6.3-8.2) g/dL Albumin (3.5-5.1) g/dL Lipase (23-300) U/L TSH (0.465-4.680) uIU/mL Urine Color Yellow (Yellow) Urine Appearance Clear (Clear) Urine pH 6.0 (5.0-9.0) Ur Specific [place] 1.005 (1.001-1.035) Urine Protein Negative (Negative) mg/dL Urine Glucose (UA) Negative (Negative) mg/dL Urine Ketones Negative (Negative) mg/dL Ur Blood (Man) Negative (Negative) Urine Nitrate Negative (Negative) Urine Bilirubin Negative (Negative) Urine Urobilinogen 0.2 (<2.0) mg/dL Leukocyte Esterase Rfl Negative (Negative) RADHA/UL POC Urine HCG, Qual (Negative) Urine Opiates Screen Negative (Negative) Urine Methadone Screen Negative (Negative) Ur Barbiturates Screen Negative (Negative) Ur Phencyclidine Scrn Negative (Negative) Ur Amphetamine Screen Negative (Negative) U Benzodiazepines Scrn Negative (Negative) Urine Cocaine Screen Negative (Negative) U Cannabinoids Screen Negative (Negative) Influenza A (RT-PCR) Negative (Negative) Influenza B (RT-PCR) Negative (Negative) RSV (RT-PCR) Negative (Negative) SARS-CoV-2 RNA (RT-PCR) Negative (Negative) Imaging Data Attestation: I personally reviewed and interpreted this imaging study as follows: My impression: No acute intrathoracic process on my independent interpretation of chest x-ray Radiologist's impression: CT head stat rad: No acute intracranial abnormality CTA chest stat rad: No acute finding. Unremarkable aorta. CTA abd pelvis stat rad: No acute finding. Unremarkable aorta. ECG Data EKG #1: Attestation: I personally reviewed and interpreted this ECG as follows: ECG completion date: 08/01/25 ECG completion time: 18:33 Prior ECG tracings: not available for review (No prior for comparison) Interpretation: Normal sinus rhythm at a rate of 77 beats per minute. [place] interval 169. QRS 101. QT/QTC 390/444. Good R-wave progression across the precordial leads. No T-wave inversions. There is borderline left axis deviation as QRS is positive in 1 and negative in 3 and AVF. There is a degree of trending towards negative in 2 however more than half of the QRS complex does appear positive. Incomplete RBBB given QRS less addy227od; RSR' M-shaped pattern in V1-V3; though not wide, slurred S wave in lateral leads. Pre populated algorithm suggests left ventricular hypertrophy ; S wave depth in V1 + tallest R wave height in V5-6 is <35mm but R wave in lead I + S wave in lead III is >25mm. Discharge Plan Discharge Clinical Impression: Hypertension, Chest pain, Headache Patient Disposition: Home Condition: Stable Instructions: Antibiotic Form, Chest Pain (DC), Hypertension (ED), General Headache (ED) Additional Instructions: As we discussed, you had a reassuring workup and her symptoms were improved. Although it appears the prescription has already been sent for a new blood pressure medication, I have provided a written prescription for the same in case there issues. Keep a log of your blood pressure measurements that you take at home both treated and untreated as well as if you have any symptoms and follow-up with your primary care provider to determine if there should be any further changes to this medication. Return to the emergency department with any new or worsening symptoms. Given the chest pain, although your otherwise relatively low risk, if you need the name of a publication director for follow-up for outpatient workup, the name of 1 is listed below. Similarly, if you are in need of a primary care physician not affiliated the [facility], the name of the doctors listed below. Patient Language: [place] Prescriptions: New amlodipine 10 mg tablet 10 mg PO DAILY Qty: 30 0RF No Action escitalopram oxalate 20 mg tablet 20 mg PO DAILY norethindrone (contraceptive) 0.35 mg tablet 0.35 mg PO DAILY propranolol 40 mg tablet 40 mg PO DAILY lisinopril 30 mg tablet 30 mg PO DAILY montelukast 10 mg tablet 10 mg PO DAILY bupropion HCl 300 mg tablet extended release 24 hr PO Follow-up/Referrals: Micheal Esqueda MD [Physician, Family Practice] Referral Note: primary care DAVILLA, [Primary Care Provider] Adrián Falcon MD [Physician, Cardiology] Stand Alone Forms: Work/School Release IP Time of Disposition: 23:36
[2025-08-01 19:36] LABS: BEDSIDEPREGUCG Negative (Negative)
[2025-08-01 19:45] LABS: Add Urine Microscopic? NO; Appearance Urine Clear (Clear); Glucose Urine UA Negative (Negative); Leukocyte Esterase Ur Negative LEU/UL (Negative); Nitrate Urine Negative (Negative); Specific Grav Ur 1.005 (1.001-1.035)
[2025-08-01 20:07] LABS: Cannabinoid Screen Urine Negative (Negative)
[2025-08-01 20:18] LABS: NT Pro B Type Natriuretic Pept 66 pg/mL (19.9-100)
[2025-08-01 20:38] LABS: Influenza A QL RT-PCR Negative (Negative); Influenza B QL RT-PCR Negative (Negative); RSV RNA, RT-PCR Negative (Negative); SARS-CoV-2 RNA PCR Negative (Negative)
[2025-08-01 20:40] LABS: Thyroid Stimulating Hormone 2.080 uIU/mL (0.465-4.680)
[2025-08-01 21:04] VITALS: BP 189/123; PULSE 78; RESP 15; O2SAT 98
[2025-08-01 21:05] VITALS: BP 164/114
[2025-08-01 21:52] LABS: Troponin I < 0.012 ng/mL (0.000-0.034)
[2025-08-01 22:00] LABS: Magnesium 1.9 mg/dL (1.6-2.3)
[2025-08-01] MEDS: SODIUM CHLORIDE 0.9% IV 500 ML 999 ML IV CONT (22:05)
[2025-08-01] MEDS: MAGNESIUM SULF 1 GM/D5W 100 ML 1 GM/100 ML BAG IVPB (22:06)
[2025-08-01] MEDS: KETOROLAC 15 MG/ML VIAL (*BKC) IV PUSH (22:07)
[2025-08-01] MEDS: PROCHLORPERAZINE EDISYLATE 10 MG/2 ML VIAL 5 MG IV PUSH (22:07)
[2025-08-01] MEDS: ACETAMINOPHEN 500 MG TABLET 1000 MG PO (22:07)
[2025-08-01 22:14] VITALS: BP 182/112; PULSE 81; RESP 19; O2SAT 99
[2025-08-01 23:15] VITALS: BP 167/98; PULSE 88; RESP 18; O2SAT 98
[2025-08-01 23:52] VITALS: BP 182/123; PULSE 90; RESP 18; O2SAT 99
== END 2025-08-01 23:53 | disposition home or self-care (01) ==
PROVIDERS: Emergency Medicine; Emergency Provider Student in an Organized Health Care Education/Training Program
DX: I10 Essential (primary) hypertension (principal); R51.9 Headache, unspecified; R07.9 Chest pain, unspecified; R06.02 Shortness of breath; Z20.822 Contact with and (suspected) exposure to COVID-19; F32.A Depression, unspecified; Z90.49 Acquired absence of other specified parts of digestive tract; Z79.3 Long term (current) use of hormonal contraceptives; Z79.899 Other long term (current) drug therapy; I45.10 Unspecified right bundle-branch block
CPT/HCPCS: 36415; 70450; 71046; 71275; 74174; 80053; 80307; 81003; 81025; 83690; 83735; 83880; 84443; 84484; 85025; 85610; 85730; 87637; 93005; 96365; 96375; 96376; 99284; A9270; J0780; J1200; J1885; J3475; J7040; Q9967